=== PATIENT | female | born 1930 | race Caucasian/White ===

== ENCOUNTER 2018-02-18 23:42 | Inpatient (IN) | payer OTHER ==
[2018-02-19] MEDS ORDERED: NA CHLORIDE 0.9% 1,000 ML ONE (00:17)
[2018-02-19] MEDS ORDERED: ONDANSETRON 4 MG/2 ML VIAL ONE (00:17)
[2018-02-19 00:23] LABS: Absolute Lymphocytes (CBC) 1.5 K/uL (0.7-4.9); Absolute Monocytes 0.8 K/uL (0.1-1.3); Absolute Neutrophil 9.3 K/uL (1.8-8.0); Hematocrit 43.4 % (36.0-45.0); MPV 9.5 fL (7.6-11.3); Monocytes % 6.4 % (3.3-12.3)
[2018-02-19] MEDS ORDERED: PROMETHAZINE 25 MG/ML VIAL ONE ×2 (00:44→01:34)
[2018-02-19 01:05] LABS: ALT/SGPT 24 U/L (12-78); AST/SGOT 28 U/L (15-37); Albumin 3.4 g/dL (3.4-5.0); Alkaline Phosphatase 85 U/L (45-117); BUN Blood Urea Nitrogen 39 mg/dL (7-18); Bicarbonate 24 mmol/L (21-32); Bilirubin Direct < 0.1 mg/dL (0-0.2); Bilirubin Total 0.2 mg/dL (0.2-1.0); Glucose Level 146 mg/dL (74-106); Lipase 208 U/L (73-393); Potassium 4.5 mmol/L (3.5-5.1); Protein, Total 7.4 g/dL (6.4-8.2); Sodium Level 138 mmol/L (136-145)
[2018-02-19] MEDS ORDERED: MEPERIDINE HCL 25 MG/0.5 ML ONE (01:53)
[2018-02-19] MEDS ORDERED: LIDOCAINE VISCOUS 2% SOLN 15 ML UDC ONE (03:35)
--- NOTE | 2018-02-19 04:47 | ER ---
Nurse's Notes [facility] Name: Carlee Zhou Age: 87 yrs Sex: Female : 1930 Arrival Date: 02/18/2018 Time: 23:48 Bed 6 Private MD: Bassam Duarte C Diagnosis: Unspecified abdominal hernia;Small bowel obstruction;Dehydration Presentation: 02/19 00:03 Presenting complaint: Patient states: "I think it's plugged up"; Patient states lp1 attempting measures to fix blocked ostomy bag with no relief; pain and tenderness around site. Transition of care: patient was not received from another setting of care. Onset of symptoms was February 19, 2018. Risk Assessment: Do you want to hurt yourself or someone else? Patient reports no desire to harm self or others. Initial Sepsis Screen: Does the patient meet any 2 criteria? No. Patient's initial sepsis screen is negative. Does the patient have a suspected source of infection? No. Patient's initial sepsis screen is negative. Care prior to arrival: None. 00:03 Method Of Arrival: Wheelchair lp1 00:03 Acuity: CIRA 3 lp1 Historical: - Allergies: 00:07 Sulfa (Sulfonamide Antibiotics); lp1 - Home Meds: 00:07 Prednisone Oral [Active]; lp1 - PMHx: 00:07 "Leaky heart valve"; Asthma; Hypertension; ulcerative colitis; lp1 - PSHx: 00:07 Ileostomy; lp1 - Immunization history:: Adult Immunizations up to date. - Social history:: Smoking status: Patient/guardian denies using tobacco. - Ebola Screening: : No symptoms or risks identified at this time. - Family history:: not pertinent. - Hospitalizations: : No recent hospitalization is reported. Screenin:10 Abuse screen: Denies threats or abuse. Nutritional screening: No deficits noted. bb Tuberculosis screening: No symptoms or risk factors identified. Fall Risk None identified. Assessment: 00:10 General: Appears in no apparent distress. uncomfortable, Behavior is calm, cooperative. bb Pain: Complains of pain in abdomen. Neuro: Level of Consciousness is awake, alert, obeys commands, Oriented to person, place, time, situation. Cardiovascular: Heart tones S1 S2 present Capillary refill < 3 seconds Patient's skin is warm and dry. Pulses are all present. Edema is absent. Respiratory: Airway is patent Respiratory effort is even, unlabored, Respiratory pattern is regular, Breath sounds are clear bilaterally. GI: Abdomen is non-distended, Bowel sounds present X 4 quads. Abd is soft X 4 quads Abdomen is tender to palpation in right upper quadrant and right lower quadrant Reports pt 's c/o ileostomy does not seem to be working. Derm: Skin is pink, warm \\T\\ dry. Musculoskeletal: Circulation, motion, and sensation intact. 00:25 Reassessment: pt c/o increased nausea, Dr. Meyers notified with new orders given. pt ak1 will attempt to start oral contrast at 0100. will continue to monitor. . 01:21 Reassessment: pt finished 200mL oral contrast and unable to finish, Dr. Meyers notified. ak1 CT contacted that per Dr. Meyers that was enough oral contrast. 01:34 Reassessment: Patient is alert, oriented x 3, equal unlabored respirations, skin bb warm/dry/pink. pt actively vomiting Dr Meyers notified new orders received pt medicated see MAY. 01:45 Reassessment: pt c/o abdominal pain Dr Meyers notified new orders received pt medicated bb see MAY. 01:50 Reassessment: pt to CT scan via stretcher with ordnance engineering technician. bb 02:14 Reassessment: Patient is alert, oriented x 3, equal unlabored respirations, skin bb warm/dry/pink. IV site intact, patent with fluids infusing, family at bedside awaiting CT results. 03:48 Reassessment: Patient is alert, oriented x 3, equal unlabored respirations, skin bb warm/dry/pink. NG tube placed to left nare pt tolerated well see note. 03:50 Reassessment: pt and family notified of findings and recommendations pt to be bb transferred for higher level of care pt and family verbalized understanding of and agrees to plan of care. 04:31 Reassessment: pt appears to be sleeping eyes closed, resp unlabored, NG tube in place bb to low-intermittent suction, family at bedside, unable to transfer pt will be admitted here. 04:50 Reassessment: Dr Meyers at bedside discussed the need for admission due to her physician bb no longer is available at [facility], and [facility] is at capacity. Pt and family verbalized understanding of and agrees to plan of care. Awaiting room assignment. 06:16 Reassessment: Patient and/or family updated on plan of care and expected duration. Pain bb level reassessed. Patient is alert, oriented x 3, equal unlabored respirations, skin warm/dry/pink. pt awaiting room assignment after shift change, IV site intact, NG tube to left nare in place to low intermittent suction. 06:45 Reassessment: pt assisted to restroom to empty colostomy bag, pt had "full bag". ak1 provider notified. family and pt notified of transfer to assigned room after 30 due to shift change. . 07:13 Reassessment: report given to Trisha and MAUREEN. ak1 08:14 Reassessment: No changes from previously documented assessment. Patient and/or family ph updated on plan of care and expected duration. Pain level reassessed. Patient is alert, oriented x 3, equal unlabored respirations, skin warm/dry/pink. Report called to Amy MARIE, pt taken to 4th floor by senior radiation protection technician. Vital Signs: 00:07 BP 148 / 62; Pulse 82; Resp 18; Temp 98.1(O); Pulse Ox 97% on R/A; Weight 85.28 kg; lp1 Height 5 ft. 1 in. (154.94 cm); Pain 8/10; 01:24 BP 153 / 63; Pulse 83; Resp 18; Pulse Ox 97% on R/A; ak1 02:16 BP 121 / 54; Pulse 78; Resp 16; Pulse Ox 95% on R/A; bb 03:49 BP 130 / 51; Pulse 81; Resp 16 S; Pulse Ox 94% on R/A; bb 04:32 BP 124 / 47; Pulse 78; Resp 14 S; Pulse Ox 93% on R/A; bb 05:15 BP 127 / 50; Pulse 66; Resp 16; Pulse Ox 93% on R/A; bb 06:17 BP 134 / 48; Pulse 73; Resp 16 S; Temp 98.3(O); Pulse Ox 94% on R/A; bb 07:15 BP 124 / 52; Pulse 71; Resp 18; Pulse Ox 97% on R/A; ph 08:15 BP 127 / 51; Pulse 67; Resp 18; Temp 98.1; Pulse Ox 94% on R/A; ph 00:07 Body Mass Index 35.52 (85.28 kg, 154.94 cm) lp1 ED Course: 02/18 23:48 Patient arrived in ED. am2 23:49 Bassam Duarte MD is Private Physician. am2 23:52 Frankie Meyers MD is Attending Physician. rn 02/19 00:02 Smita Evans, RN is Primary Nurse. ak1 00:05 Triage completed. lp1 00:07 Arm band placed on. lp1 00:10 Patient has correct armband on for positive identification. Placed in gown. Bed in low bb position. Call light in reach. Side rails up X2. Adult w/ patient. surveillance system monitor on. Pulse ox on. NIBP on. Warm blanket given. 00:10 Inserted saline lock: 20 gauge in right antecubital area, using aseptic technique. jb5 Blood collected. 00:11 Basic Metabolic Panel Sent. jb5 00:11 CBC with Diff Sent. jb5 00:12 Hepatic Function Sent. jb5 00:12 Lipase Sent. jb5 00:22 Inserted saline lock: 22 gauge in left antecubital area, using aseptic technique. jb5 01:54 CT completed. Patient tolerated procedure well. Patient moved to CT via stretcher. Patient moved back from CT. 02:01 Abdomen In Process Unspecified. EDMS 03:48 NGT: inserted 14 Fr. via left nare. verified placement of air over stomach, verified bb return of gastric contents, to intermittent suction. Returned gastric contents. Patient tolerated well. 03:51 No provider procedures requiring assistance completed. Patient transferred, IV remains bb in place. 04:46 Bassam Duarte MD is Hospitalizing Provider. rn Administered Medications: 00:15 Drug: Zofran 4 mg Route: IVP; Site: right antecubital; ak1 00:23 Follow up: Response: Nausea unchanged ak1 00:23 Drug: NS 0.9% 500 ml Route: IV; Rate: bolus; Site: left antecubital; ak1 01:00 Follow up: IV Status: Completed infusion ak1 01:00 Follow up: IV Intake: 500ml ak1 00:45 Drug: Phenergan 12.5 mg Route: IVP; Site: left antecubital; ak1 01:00 Follow up: Response: No adverse reaction; Nausea is decreased ak1 :18 Drug: NS 0.9% 500 ml Route: IV; Rate: bolus; Site: left antecubital; bb 02:15 Follow up: IV Status: Completed infusion; IV Intake: 500ml bb 01:32 CANCELLED (Duplicate Order): Phenergan 12.5 mg IVP once bb 01:33 Drug: Phenergan 12.5 mg Route: IVP; Site: left antecubital; bb 02:30 Follow up: Response: Marked relief of symptoms bb 01:50 Drug: Demerol 25 mg Route: IVP; Site: left antecubital; bb 06:20 Follow up: Response: Pain is decreased bb 03:40 Drug: Viscous Lidocaine Liquid (4 %) 1 pkgs Route: Mucous Membrane; bb 04:00 Follow up: Response: No adverse reaction bb Intake: 01:00 IV: 500ml; Total: 500ml. ak1 02:15 IV: 500ml; Total: 1000ml. bb Outcome: 03:50 Instructed on the need for transfer. bb 03:51 Condition: stable bb 04:47 Decision to Hospitalize by Provider. rn 08:16 Admitted to Med/surg accompanied by tech, via stretcher, room 410, with chart, Report ph called to RN 08:22 Patient left the ED. ph Signatures: Dispatcher [employer] EDMS Audrey Dee Brenda RN RN bb Frankie Meyers MD MD rn Pena, Laura, RN RN lp1 Smita Evans RN RN ak1 Blanche Crawford RN RN ph Eleonora House Amanda am2
--- NOTE | 2018-02-19 04:47 | EDPHYS ---
Physician Documentation [facility] Name: Carlee Zhou Age: 87 yrs Sex: Female : 1930 Arrival Date: 02/18/2018 Time: 23:48 Bed 6 Private MD: Bassam Duarte C ED Physician Frankie Meyers HPI: 02/19 00:06 This 87 yrs old Female presents to ER via Wheelchair with complaints of auditor internal bag problem. 00:06 The patient presents with abdominal pain. Onset: The symptoms/episode began/occurred rn today. The symptoms do not radiate. Associated signs and symptoms: Pertinent positives: constipation. The symptoms are described as achy, crampy. Modifying factors: The symptoms are alleviated by nothing, the symptoms are aggravated by nothing. Severity of pain: At its worst the pain was moderate in the emergency department the pain has improved. The patient has experienced similar episodes in the past. REports decreased ostomy output, surgery was in 2011 for ulcerative colitis, has ileostomy, has had this multiple times in past but fixed itself with fluids. Reports took trip to [place] and came back like this. + nausea and vomiting. . Historical: - Allergies: 00:07 Sulfa (Sulfonamide Antibiotics); lp1 - Home Meds: 00:07 Prednisone Oral [Active]; lp1 - PMHx: 00:07 "Leaky heart valve"; Asthma; Hypertension; ulcerative colitis; lp1 - PSHx: 00:07 Ileostomy; lp1 - Immunization history:: Adult Immunizations up to date. - Social history:: Smoking status: Patient/guardian denies using tobacco. - Ebola Screening: : No symptoms or risks identified at this time. - Family history:: not pertinent. - Hospitalizations: : No recent hospitalization is reported. ROS: 00:06 Constitutional: Negative for fever, chills, and weight loss, Eyes: Negative for injury, rn pain, redness, and discharge, Neck: Negative for injury, pain, and swelling, Cardiovascular: Negative for chest pain, palpitations, and edema, Respiratory: Negative for shortness of breath, cough, wheezing, and pleuritic chest pain, Abdomen/GI: + abd pain and nausea/vomiting, + constipation MS/Extremity: Negative for injury and deformity, Skin: Negative for injury, rash, and discoloration, Neuro: Negative for headache, weakness, numbness, tingling, and seizure. Exam: 00:06 Constitutional: This is a well developed, well nourished patient who is awake, alert, rn appears uncomfortable Head/Face: Normocephalic, atraumatic. Eyes: Pupils equal round and reactive to light, extra-ocular motions intact. Lids and lashes normal. Conjunctiva and sclera are non-icteric and not injected. Cornea within normal limits. Periorbital areas with no swelling, redness, or edema. ENT: dry MM Cardiovascular: Regular rate and rhythm, No pulse deficits. Respiratory: Lungs have equal breath sounds bilaterally, clear to auscultation Abdomen/GI: soft, mild periumbilical tenderness MS/ Extremity: Pulses equal, no cyanosis. Neurovascular intact. Full, normal range of motion. Equal circumference. Neuro: Awake and alert, GCS 15, oriented to person, place, time, and situation. Cranial nerves II-XII grossly intact. Motor strength 5/5 in all extremities. Sensory grossly intact. Vital Signs: 00:07 BP 148 / 62; Pulse 82; Resp 18; Temp 98.1(O); Pulse Ox 97% on R/A; Weight 85.28 kg; lp1 Height 5 ft. 1 in. (154.94 cm); Pain 8/10; 01:24 BP 153 / 63; Pulse 83; Resp 18; Pulse Ox 97% on R/A; ak1 02:16 BP 121 / 54; Pulse 78; Resp 16; Pulse Ox 95% on R/A; bb 03:49 BP 130 / 51; Pulse 81; Resp 16 S; Pulse Ox 94% on R/A; bb 04:32 BP 124 / 47; Pulse 78; Resp 14 S; Pulse Ox 93% on R/A; bb 05:15 BP 127 / 50; Pulse 66; Resp 16; Pulse Ox 93% on R/A; bb 06:17 BP 134 / 48; Pulse 73; Resp 16 S; Temp 98.3(O); Pulse Ox 94% on R/A; bb 07:15 BP 124 / 52; Pulse 71; Resp 18; Pulse Ox 97% on R/A; ph 08:15 BP 127 / 51; Pulse 67; Resp 18; Temp 98.1; Pulse Ox 94% on R/A; ph 00:07 Body Mass Index 35.52 (85.28 kg, 154.94 cm) lp1 Procedures: 03:29 Performed Hernia reduction. Pt placed supine, hernia palpated, with gentle pressure, rn hernia reduced, pt improved, pending NG tube placement, awaiting call back from [facility] colorectal given patient prefers to go back there given colectomy and ileostomy done there. . MDM: 02/18 23:52 Patient medically screened. rn 02/19 04:31 ED course: Have called Dr. Beverly 3 times, no answer, goes straight to voicemail, rn confirmed he is data center consultant after 7PM tonight and not Dr. Interiano. . 04:43 ED course: Attempted transfer to [facility] given surgery there 6 years ago, her surgeon, rn Dr. Espinoza Fonseca no longer practices there. We were told by [facility] that practices [facility], unable to discuss patient with [facility] since at capacity and told by transfer center not accepting transfers. Admitted patient to Dr. Watters given unable to discuss care with Dr. Beverly, and hernia that is causing SBO is now reduced. . 06:36 ED course: Pt Just emptied colostomy bag, was full, reports abd pain resolved. . rn 02/18 23:58 Order name: Basic Metabolic Panel; Complete Time: 01:09 rn 02/18 23:58 Order name: CBC with Diff; Complete Time: 01:09 rn 02/18 23:58 Order name: Hepatic Function; Complete Time: 01:09 rn 02/18 23:58 Order name: Lipase; Complete Time: 01:09 rn 02/19 01:54 Order name: Abdomen EDFL 02/18 23:58 Order name: IV Saline Lock; Complete Time: 00:12 rn 02/18 23:58 Order name: Labs collected and sent; Complete Time: 00:12 rn 02/19 03:34 Order name: NG Tube; Complete Time: 03:47 ak1 Administered Medications: 00:15 Drug: Zofran 4 mg Route: IVP; Site: right antecubital; ak1 00:23 Follow up: Response: Nausea unchanged ak1 00:23 Drug: NS 0.9% 500 ml Route: IV; Rate: bolus; Site: left antecubital; ak1 01:00 Follow up: IV Status: Completed infusion ak1 01:00 Follow up: IV Intake: 500ml ak1 00:45 Drug: Phenergan 12.5 mg Route: IVP; Site: left antecubital; ak1 01:00 Follow up: Response: No adverse reaction; Nausea is decreased ak1 01:18 Drug: NS 0.9% 500 ml Route: IV; Rate: bolus; Site: left antecubital; bb 02:15 Follow up: IV Status: Completed infusion; IV Intake: 500ml bb 01:32 CANCELLED (Duplicate Order): Phenergan 12.5 mg IVP once bb 01:33 Drug: Phenergan 12.5 mg Route: IVP; Site: left antecubital; bb 02:30 Follow up: Response: Marked relief of symptoms bb 01:50 Drug: Demerol 25 mg Route: IVP; Site: left antecubital; bb 06:20 Follow up: Response: Pain is decreased bb 03:40 Drug: Viscous Lidocaine Liquid (4 %) 1 pkgs Route: Mucous Membrane; bb 04:00 Follow up: Response: No adverse reaction bb Disposition: 02/19/18 04:47 Hospitalization ordered by Bassam Duarte for Inpatient Admission. Preliminary diagnosis are Unspecified abdominal hernia, Small bowel obstruction, Dehydration. - Bed requested for Telemetry/MedSurg (Inpatient). - Status is Inpatient Admission. ph - Condition is Stable. - Problem is new. - Symptoms have improved. UTI on Admission? No Signatures: Dispatcher [employer] EDFL Ann Robles Kimberly, RN RN kl Ballard, Brenda RN Frankie Dillon MD MD rn Pena, Laura RN RN lp1 Smita Evans RN RN akBlanche Astudillo RN RN ph Corrections: (The following items were deleted from the chart) 01:32 01:32 Phenergan 12.5 mg IVP once ordered. bb bb 01:54 02/18 23:59 Abdomen Pelvis W Con+CT.RAD.BRZ ordered. EDFL EDFL 02/19 06:54 04:47 Hospitalization Ordered by Bassam Duarte MD for Inpatient Admission. Preliminary kl diagnosis is Unspecified abdominal hernia; Small bowel obstruction; Dehydration. Bed requested for Telemetry/MedSurg (Inpatient). Status is Inpatient Admission. Condition is Stable. Problem is new. Symptoms have improved. UTI on Admission? No. rn 07:48 06:54 02/19/2018 04:47 Hospitalization Ordered by A Gerald RAMIREZ for Inpatient Admission. bd Preliminary diagnosis is Unspecified abdominal hernia; Small bowel obstruction; Dehydration. Bed requested for Telemetry/MedSurg (Inpatient). Status is Inpatient Admission. Condition is Stable. Problem is new. Symptoms have improved. UTI on Admission? No. kl 07:48 07:48 02/19/2018 04:47 Hospitalization Ordered by A Gerald RAMIREZ for Inpatient Admission. bd Preliminary diagnosis is Unspecified abdominal hernia; Small bowel obstruction; Dehydration. Bed requested for Telemetry/MedSurg (Inpatient). Status is Inpatient Admission. Condition is Stable. Problem is new. Symptoms have improved. UTI on Admission? No. bd 07:51 07:48 02/19/2018 04:47 Hospitalization Ordered by A Gerald RAMIREZ for Inpatient Admission. bd Preliminary diagnosis is Unspecified abdominal hernia; Small bowel obstruction; Dehydration. Bed requested for Telemetry/MedSurg (Inpatient). Status is Inpatient Admission. Condition is Stable. Problem is new. Symptoms have improved. UTI on Admission? No. bd 08:22 07:51 02/19/2018 04:47 Hospitalization Ordered by A Gerald RAMIREZ for Inpatient Admission. ph Preliminary diagnosis is Unspecified abdominal hernia; Small bowel obstruction; Dehydration. Bed requested for Telemetry/MedSurg (Inpatient). Status is Inpatient Admission. Condition is Stable. Problem is new. Symptoms have improved. UTI on Admission? No. bd
[2018-02-19] MEDS ORDERED: ZOLPIDEM TARTRATE 5 MG TABLET PO PRN (07:57)
[2018-02-19] MEDS ORDERED: ALBUTEROL 2.5 MG/3 ML NEB SOL NEB PRN (07:57)
[2018-02-19] MEDS ORDERED: ONDANSETRON 4 MG/2 ML VIAL IV PRN (08:35)
[2018-02-19] MEDS ORDERED: MORPHINE 4 MG/ML SYR IV PRN (08:35)
--- NOTE | 2018-02-19 08:51 | RAD REPORT ---
EXAM DESCRIPTION: CT - Abdomen Pelvis Wo Contrast - 02/19/2018 4:25 am CLINICAL HISTORY: Abdominal pain. eval for SBO;Abd pain COMPARISON: [facility]STONE PROTOCOL dated 04/28/2015 TECHNIQUE: CT imaging of the abdomen and pelvis was performed without contrast. Solid organ and vasc ular assessment is limited due to lack of IV contrast. All CT scans are performed using dose optimization technique as appropriate and may include automated exposure control or mA/KV adjustment according to patient size. FINDINGS: Emphysematous changes are present in the lung bases. The liver, spleen, pancreas, adrenal glands and kidneys are within normal limits for a limited non-co ntrast examination. Several prominent ventral hernias are present including fat containing superior ventral hernia, infer ior to this a ventral hernia containing unobstructed loop of small bowel is also present. A moderate parastomal hernia containing small bowel loop mildly congested fat to the right of midline. This olga ia appears to result in moderate grade mechanical small-bowel obstruction. No abscess. Colectomy tafoya ges noted. No free intraperitoneal air seen. L3 vertebral body cement noted. IMPRESSION: Moderate parastomal hernia of small bowel results in moderate grade mechanical small-bow el obstruction as detailed. A limited non-contrast examination was performed as detailed.
[2018-02-19] MEDS ORDERED: CEFTRIAXONE 1 GM/NS 50 ML 1 GM/50 ML BAG IV SCH (09:00)
[2018-02-19] MEDS: DILTIAZEM HCL 180 MG SR CAP PO SCH (09:00)
[2018-02-19] MEDS: D5 0.45 NS 1,000 ML IV SCH ×2 (09:25→16:28)
[2018-02-19] MEDS: CEFTRIAXONE/SWI 1gm 1 GM/10 ML SYR IV SCH ×2 (09:26→21:39)
[2018-02-19] MEDS: HYDROCORTISONE SUC 100 MG INJ IV SCH ×3 (10:28→18:00)
[2018-02-19] MEDS: DULERA 200/5 (MOMETASONE/FORMOTEROL) INHALER IH SCH ×2 (10:28→21:38)
[2018-02-19] MEDS: METRONIDAZOLE 500mg IVPB 500 MG/100 ML BAG IV SCH ×2 (10:29→16:27)
[2018-02-19] MEDS ORDERED: PNEUMOCOCCAL VACCINE 0.5 ML IMVAC ONE (11:00)
[2018-02-19] MEDS ORDERED: INFLUENZA VACCINE (for 3y+) 0.5 ML DOSE IMVAC ONE (11:00)
[2018-02-19 11:40] LABS: Urine Appearance CLEAR; Urine Bilirubin NEGATIVE (NEG); Urine Blood NEGATIVE (NEG); Urine Color YELLOW; Urine Glucose NEGATIVE (NEG); Urine Microscopic Reflex NO UMIC; Urine Protein NEGATIVE (NEG); Urine Specific Gravity 1.015 (1.005-1.030); Urine Urobilinogen 0.2 mg/dL (0.2-1.0)
[2018-02-19] MEDS ORDERED: ENOXAPARIN 30 MG/0.3 ML SQ SCH (17:00)
[2018-02-19] MEDS ORDERED: ENOXAPARIN 40 MG/0.4 ML SQ SCH (17:00)
[2018-02-20] MEDS: HYDROCORTISONE SUC 100 MG INJ IV SCH ×5 (01:00→23:55)
[2018-02-20] MEDS: METRONIDAZOLE 500mg IVPB 500 MG/100 ML BAG IV SCH ×4 (01:04→23:55)
--- NOTE | 2018-02-20 01:26 | HP ---
Date of Admission: 02/19/2018 Chief Complaint: Abdominal pain, nausea, vomiting. History Of Present Illness: This 87-year-old female patient who was doing fine until yesterday stevie kate started to have significant abdominal pain associated with nausea, vomiting, [facility] Denies any fever, chills. No hematemesis, no bleeding, no blood in stool. After the p collin came into emergency room, she was diagnosed as having parastomal hernia and small bowel obstru ction. ER physician was able to reduce her hernia. An NG tube was placed. IV fluid, IV antibiotics were started and the patient was admitted to the hospital under my service. I saw her this morning she was in the emergency room, her and [id number] were present with her. She was feelin g much better compared to last night. Allergies: TO SULFA. Medications: List reviewed, and she takes prednisone 5 mg daily, Benicar 20 mg daily, diltiazem 180 mg p.o. daily, Symbicort inhaler 2 puffs twice a day, ProAir inhaler p.r.n. Review of Systems: GI: As mentioned above. All other systems reviewed and negative. Social History: Negative for smoking and alcohol use. Family History: Not pertinent. Past Surgical History: Significant for total colectomy in 2004 because of ulcerative colitis and had vertebroplasty for compression fracture of L3-L4 and this was done February 2015. Past Medical History: Significant for hypertension, compression fracture of lumbar spine, ulcerative colitis, asthma, diverticulosis, hyperlipidemia, allergic rhinitis, insomnia, vitamin D deficiency. Physical Examination: Vital Signs: Reviewed. General: Awake, alert, oriented, not in distress. HEENT: Head atraumatic, normocephalic. Conjunctivae nonerythematous. Sclerae white. Mouth, no thr ush or edema noted. Ears/Nose, no mass, lesion, discharge noted. Neck: Supple. No JVD, lymph nodes, bruit, thyromegaly noted. Lungs: Bilateral good equal air entry. Clear to auscultation. No rhonchi. No rales. Heart: Normal heart sounds, no murmur or gallop. Abdomen: The patient has some tenderness around her stoma, which is in right lower quadrant and stom a site appears normal. Abdomen is soft, bowel sounds normoactive. Extremities: No leg edema. No calf tenderness. Skin: No rash, ulcer, cellulitis. Lymphatics: No lymph node enlargement in neck, supraclavicular, infraclavicular region. Neuro: No focal neurological deficit. Chest: Unremarkable. External Genitalia: Deferred. Rectal: Deferred. Laboratory Data: White count 11.8, hemoglobin 14.3, platelets 280. Sodium 138, potassium 4.5, chlor phil 107, bicarb 24, BUN 39, creatinine 1.60, glucose 146. Liver function tests unremarkable. Lipase 208. CAT scan of abdomen and pelvis done in emergency room, results reviewed showing parastomal her lisa with evidence of small bowel obstruction. Impression: 1.Small bowel obstruction. 2.Parastomal abdominal wall hernia. 3.Hypertension. 4.Hyperlipidemia. 5.Mild intermittent asthma. 6.Allergic rhinitis. 7.Ulcerative colitis. 8.Vitamin D deficiency. 9.Diverticulosis. 10.Insomnia. Plan: We will admit the patient to hospital for further evaluation and management of this problem. The patient is appropriate for inpatient and is expected to spend 2 midnights in hospital. Consult g eneral surgeon. NG tube was placed in emergency room. We will continue NG tube to low intermittent suction. IV fluid, IV antibiotics will be given per order. DVT prophylaxis will be given per order using Lovenox. Home medications will be continued, which is diltiazem at this point and we will cons ider to restart Benicar when necessary. The patient is on chronic steroid therapy using prednisone 5 mg daily and considering her acute illness. Right now, we will go ahead and give her IV Solu-Cortef 50 mg every 6 hours. SCD was ordered. I will see her tomorrow for followup. NIDHI/MODL Voice ID: [id number]
[2018-02-20] MEDS: D5 0.45 NS 1,000 ML IV SCH ×4 (04:26→23:56)
[2018-02-20 04:38] LABS: ALT/SGPT 17 U/L (12-78); AST/SGOT 14 U/L (15-37); Albumin 2.6 g/dL (3.4-5.0); Alkaline Phosphatase 51 U/L (45-117); BUN Blood Urea Nitrogen 16 mg/dL (7-18); Bicarbonate 27 mmol/L (21-32); Bilirubin Direct < 0.1 mg/dL (0-0.2); Bilirubin Total 0.2 mg/dL (0.2-1.0); Glucose Level 160 mg/dL (74-106); Lipase 92 U/L (73-393); Potassium 4.8 mmol/L (3.5-5.1); Protein, Total 5.8 g/dL (6.4-8.2); Sodium Level 144 mmol/L (136-145)
[2018-02-20 04:39] LABS: Absolute Lymphocytes (CBC) 0.9 K/uL (0.7-4.9); Absolute Monocytes 0.2 K/uL (0.1-1.3); Absolute Neutrophil 6.6 K/uL (1.8-8.0); Basophils % 0.2 % (0-1.3); Hematocrit 37.1 % (36.0-45.0); Lymphocytes % 12.2 % (15.3-44.8); MPV 10.2 fL (7.6-11.3); Monocytes % 2.5 % (3.3-12.3); RBC Red Blood Cell Count 4.19 M/uL (3.86-4.86)
[2018-02-20 05:17] LABS: Blood Morphology Comment NOT SEEN (NOT SEEN); Platelet Estimate ADEQ
[2018-02-20] MEDS: DULERA 200/5 (MOMETASONE/FORMOTEROL) INHALER IH SCH ×2 (09:00→21:28)
[2018-02-20] MEDS: CEFTRIAXONE/SWI 1gm 1 GM/10 ML SYR IV SCH ×2 (09:00→21:28)
--- NOTE | 2018-02-20 09:28 | RAD REPORT ---
EXAM DESCRIPTION: RAD - Abdomen Acute Series - 02/20/2018 8:15 am CLINICAL HISTORY: Small bowel obstruction COMPARISON: CT imaging February 19, acute abdomen series April 2015 FINDINGS: No mass or consolidation of the lung parenchyma. Interstitial markings are prominent poten tially masking minimal interstitial edema or infiltrate. Heart size and pulmonary vasculature are nor mal. No pneumothorax is present. Right costophrenic angle blunting is present. Patient can be monitor ed for minimal pleural effusion. No pleural fluid was seen on the prior day CT study. NG tube is in good position. Stomach is decompressed. Multiple distended small bowel loops are present. This indicates improvement but not complete resolut ion of the small bowel obstruction pattern. On AP projections it cannot be determined if the small chyna wel loops and colon continue to extend through the hernia defects. No free air or pneumatosis. No cha picious calcifications. No other suspicious for significant findings. IMPRESSION: Small bowel obstruction pattern has improved but not fully resolved. No free air or pneumatosis. Stomach is decompressed with well positioned NG tube.
[2018-02-20] MEDS: DILTIAZEM HCL 180 MG SR CAP PO SCH (09:44)
[2018-02-20 10:54] VITALS: O2SAT 95
[2018-02-20] MEDS ORDERED: PNEUMOCOCCAL VACCINE 0.5 ML IMVAC ONE (11:00)
[2018-02-20] MEDS ORDERED: INFLUENZA VACCINE (for 3y+) 0.5 ML DOSE IMVAC ONE (11:00)
[2018-02-20] MEDS: ENOXAPARIN 40 MG/0.4 ML SQ SCH (16:29)
--- NOTE | 2018-02-21 01:26 | PN ---
Date of Progress Note: 02/20/2018 Subjective: The patient was seen this morning for followup. No new complaints or problems reported by the patient. NG tube was in place, draining dark liquid. Denies any abdominal pain, nausea, or v omiting. Objective: Vital Signs: Reviewed. HEENT: Unremarkable. Lungs: Clear to auscultation. Heart: Sounds normal. Abdomen: Soft. Bowel sounds normal. No guarding, rigidity, tenderness, or distention. Her colosto my bag had green-colored stool in it. Extremities: No leg edema. Laboratory Data: Abdominal x-ray done today showed improvement in small bowel obstruction. White co unt 7.7, hemoglobin 12.4, and platelets 229. Sodium 144, potassium 4.8, chloride 113, bicarb 27, BUN 16, creatinine 0.90, and glucose 160. Liver function tests unremarkable. Impression: 1.Small-bowel obstruction. 2.Abdominal wall hernia. 3.Hypertension. 4.Asthma, mild, intermittent. Plan: We will go ahead and continue current medication. The patient has NG tube to low intermittent suction. We will continue to follow with Dr. Beverly for small-bowel obstruction problem. So far, the patient is improving with conservative treatment. Hopefully, Dr. Beverly will allow her to sta rt to have a liquid diet either today or tomorrow and then remove NG tube at appropriate time. Possi ble discharge to go home day after tomorrow, which is on Sunday. Ambulation was encouraged. Continue Lovenox for DVT prophylaxis. Plan of treatment was discussed wi th the patient. NIDHI/MODL Voice ID: [id number] Report ID: [id number]
[2018-02-21] MEDS: HYDROCORTISONE SUC 100 MG INJ IV SCH ×3 (05:44→17:25)
[2018-02-21 06:35] VITALS: BMI 36.6
[2018-02-21] MEDS: DULERA 200/5 (MOMETASONE/FORMOTEROL) INHALER IH SCH ×2 (09:33→21:13)
[2018-02-21] MEDS: METRONIDAZOLE 500mg IVPB 500 MG/100 ML BAG IV SCH ×2 (09:36→17:26)
[2018-02-21] MEDS: D5 0.45 NS 1,000 ML IV SCH ×2 (09:37→17:28)
[2018-02-21] MEDS: DILTIAZEM HCL 180 MG SR CAP PO SCH (09:37)
[2018-02-21] MEDS: CEFTRIAXONE/SWI 1gm 1 GM/10 ML SYR IV SCH ×2 (09:42→21:14)
[2018-02-21] MEDS: WATER FOR INJ,STERILE 10 ML IV SCH ×2 (12:00→17:25)
[2018-02-21] MEDS ORDERED: WATER FOR INJ,STERILE 10 ML ONE (12:18)
[2018-02-21] MEDS: ENOXAPARIN 40 MG/0.4 ML SQ SCH (17:25)
[2018-02-21 19:38] LABS: Urine Appearance CLEAR; Urine Bilirubin NEGATIVE (NEG); Urine Blood NEGATIVE (NEG); Urine Color YELLOW; Urine Glucose NEGATIVE (NEG); Urine Protein NEGATIVE (NEG); Urine Specific Gravity <=1.005 (1.005-1.030); Urine Urobilinogen 0.2 mg/dL (0.2-1.0); Urine pH 6.5 (5.0-7.0)
[2018-02-21 20:11] LABS: Urine Bacteria <20 /HPF (<20); Urine RBC <5 /HPF (NONE SEEN)
[2018-02-21 20:13] LABS: Urine Culture Reflex Order NOT NEEDED
[2018-02-22] MEDS: METRONIDAZOLE 500mg IVPB 500 MG/100 ML BAG IV SCH ×2 (00:17→09:45)
[2018-02-22] MEDS: D5 0.45 NS 1,000 ML IV SCH ×2 (00:17→09:46)
[2018-02-22] MEDS: HYDROCORTISONE SUC 100 MG INJ IV SCH ×3 (00:18→13:04)
--- NOTE | 2018-02-22 02:55 | PN ---
Date of Progress Note: 02/21/2018 Subjective: The patient was seen this morning for followup. No new complaints or problems reported by the patient, lying in bed, not in distress. Her NG tube was clamped by Dr. Beverly during nightt ladarius, and she denies any nausea, vomiting. She has a bowel movement through her stoma. Objective: Vital Signs: Reviewed. HEENT: Unremarkable. Lungs: Clear to auscultation. Heart: Sounds normal. Abdomen: Soft. Bowel sounds normal. No guarding, rigidity, tenderness, distention. Extremities: No leg edema. Impression: 1.Small bowel obstruction. 2.Abdominal wall hernia. 3.Hypertension. Plan: We will continue current medication, continue current antibiotic. The patient was started on clear liquid diet today by Dr. Beverly and we will see how she tolerates her diet and we will advanc e her diet as she tolerates and possible discharge to go home tomorrow. Details and plan of treatmen t discussed with her. NIDHI/MODL Voice ID: [id number] Report ID: [id number]
[2018-02-22] MEDS: WATER FOR INJ,STERILE 10 ML IV SCH ×3 (05:09→12:00)
[2018-02-22] MEDS: DULERA 200/5 (MOMETASONE/FORMOTEROL) INHALER IH SCH (09:00)
[2018-02-22] MEDS: CEFTRIAXONE/SWI 1gm 1 GM/10 ML SYR IV SCH (09:45)
[2018-02-22] MEDS: DILTIAZEM HCL 180 MG SR CAP PO SCH (09:46)
--- NOTE | 2018-02-22 14:09 | P.PN ---
Subjective Date of Service: 02/21/18 Chief Complaint: SBO Subjective: Ambulating, Improving Review of Systems 10-point ROS is otherwise unremarkable Physical Examination - Vital Signs Temperature: 97.8 F Blood Pressure: 176/72 Pulse: 52 Respirations: 20 Pulse Ox (%): 97 - Physical Exam General: Alert, In no apparent distress, Oriented x3 HEENT: PERRLA, EOMI Neck: Supple Gastrointestinal: Soft and benign, No rebound, No guarding, Other (gas and stool in ileostomy bag) Musculoskeletal: No erythema, No tenderness, No warmth Assessment And Plan - Plan clears Remove NGT OOB
--- NOTE | 2018-02-22 14:12 | P.PN ---
Subjective Date of Service: 02/20/18 Chief Complaint: SBO Subjective: No new changes Review of Systems General: Unremarkable ENT: Unremarkable Respiratory: Unremarkable Gastrointestinal: Distention, As per HPI Genitourinary: Unremarkable Physical Examination - Vital Signs Temperature: 97.8 F Blood Pressure: 176/72 Pulse: 52 Respirations: 20 Pulse Ox (%): 97 - Physical Exam General: Alert, In no apparent distress, Oriented x3, Cooperative HEENT: PERRLA, Other, EOMI Neck: Supple Cardiovascular: No edema Gastrointestinal: No rebound, No guarding, Hyperactive, Distended Musculoskeletal: No erythema - Studies reviewed Assessment And Plan - Plan Clamp NGT OOB
[2018-02-22 17:07] VITALS: BP 186/79; TEMP 97.7
--- NOTE | 2018-02-22 19:34 | CON ---
Date of Consultation: 02/19/2018 Reason For Service: Abdominal pain. Bowel obstruction. History Of Present Illness: This is the case of an 87-year-old patient who came to the hospital afte r feeling bloated and abdominal distention. She was in [place], eating with some friends. On th e way back there, started feeling that the ostomy that she has for previous colectomy was not putting any air or bowel movement and then she felt a little bit sicker, came to the ER, diagnosed with a chyna wel obstruction, admitted to the hospital and a surgical consult was obtained. 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 Her physicians who did the colectomy know about it. They have not been able to fix that yet. Review of Systems: Ten points unremarkable. Allergies: SULFA. Medications: Reviewed. Social History: She does not smoke. She does not drink alcohol. Family History: Noncontributory. Past Surgical History: Includes as above, colectomy in 2004 for ulcerative colitis and spine surgery in 2014. Physical Examination: General: The patient is awake and alert. No distress. HEENT: Pupils are equal and reactive, anicteric. Neck: Supple. Chest: Clear. Heart: S1 and S2. Abdomen: Soft and depressible. Ostomy site on the right side, no gas at this moment, no stools pres ent. Abdomen is softly distended with no peritonitis. Rectal: Deferred. Extremity: Good capillary refill. Imaging: CAT scan of the abdomen shows a ventral hernia and also bowel obstruction. Assessment: An 87-year-old patient with bowel obstruction. The patient also has parastomal hernia. She feels better now and started with some hydration. She is trying to treat this conservatively if possible, she understood the options of laparotomy, possible bowel resection, possible neostomy, als o the complexity of abdominal wall hernia repair with benefits, alternatives, and risks fully explain ed. She will be n.p.o., nasogastric decompression and ambulation. HM/MODL Voice ID: [id number] Report ID: [id number]
--- NOTE | 2018-02-23 10:17 | DS ---
Date of Discharge: 02/22/2018 Physical Examination: HEENT: Unremarkable. Lungs: Clear to auscultation. Heart: Sounds normal. Abdomen: Soft. Bowel sounds normal. No guarding, rigidity, tenderness, distention. Extremities: No leg edema. Diet: Will be low residue diet. Discharge Medications And Instructions: 1.Continue all prior home medications. 2.Take metronidazole 500 mg 3 times a day for 1 week and Cipro 500 mg twice a day for 1 week. 3.The patient to take prednisone 5 mg, the patient to take 3 tablets daily for 2 days, then 2 tablet s daily for 2 days, then 1 tablet daily to continue. 4.Follow up with Dr. Beverly next week. Follow up at my office per her scheduled appointment. Laboratory Data: Labs done during this hospitalization. Last chemistry on 02/20/2018, sodium 144, p otassium 4.8, chloride 113, bicarb 27, BUN 16, creatinine 0.90, glucose 160. Liver function tests un remarkable. Lipase 92. White count 7.7, hemoglobin 12.4, platelets 220. Hospital Course: An 87-year-old female patient admitted to the hospital with abdominal pain, nausea, vomiting. Please see dictated H and P for more information. After the patient came into emergency room, she was evaluated and diagnosed as having small bowel obstruction, was admitted to the hospital . The patient had parastomal hernia, which was reduced in the emergency room by ER physician and NG tube was placed, it was attached to low intermittent suction. IV fluid, IV antibiotics were started. She was initially kept n.p.o. and general surgeon, Dr. Beverly, was consulted. The patient's cond ition improved. DVT prophylaxis given with Lovenox. The patient overall improved with conservative treatment. NG tube was clamped and subsequently Dr. Beverly removed it. She was started on clear l iquid diet yesterday, which she has tolerated and today I talked to Dr. Beverly, we will advance t to soft diet and upon discharge, the patient was asked to eat low residue diet and Dr. Rush blackburn ld like to follow up sometime within a week or so. The patient is medically stable for discharge. C AT scan of the abdomen and pelvis done upon admission had shown parastomal hernia with evidence of sm all bowel obstruction. Final Diagnoses: 1.Small bowel obstruction. 2.Parastomal abdominal wall hernia. 3.Hypertension. 4.Hyperlipidemia. 5.Mild intermittent asthma. 6.Allergic rhinitis. 7.Ulcerative colitis. 8.Vitamin D deficiency. 9.Diverticulosis. 10.Insomnia. NIDHI/MODL Voice ID: [id number] Report ID: [id number]
== END 2018-02-22 17:26 | disposition home or self-care (01) | DRG 394 ==
LOC: ER 23:42 → ERHOLD 02-19 05:37 → 4TH 02-19 08:14
PROVIDERS: ADMIT Internal Medicine; ATTEND Internal Medicine
PROC: 0D9670Z Drainage of Stomach with Drainage Device, Via Natural or Artificial Opening (ICD-10-PCS; principal; 2018-02-19)
DX: K43.6 Other and unspecified ventral hernia with obstruction, without gangrene (principal); K51.90 Ulcerative colitis, unspecified, without complications; I10 Essential (primary) hypertension; E78.5 Hyperlipidemia, unspecified; J45.20 Mild intermittent asthma, uncomplicated; E55.9 Vitamin D deficiency, unspecified; K57.90 Diverticulosis of intestine, part unspecified, without perforation or abscess without bleeding; G47.00 Insomnia, unspecified; Z88.2 Allergy status to sulfonamides
CPT/HCPCS: 36415; 74022; 74176; 80048; 80076; 81001; 81003; 82962; 83690; 85025; 87070; 87205; 90670; 97110; 97116; 97163; 97530; 99285; G0008; G0009; J0696; J1650; J1720; J2175; J2405; J2550; J7030; J7606; Q2035

== ENCOUNTER 2018-03-04 14:00 | Emergency (ER) | payer OTHER ==
--- OUTSIDE RECORDS SUMMARY | 2018-03-04 14:03 | XMS REPORT | Clinical Summary ---
:1930 Author Organization [facility] Address [address] [place] [address] Care Team Providers Name Role Phone Unavailable Primary Care Provider Unavailable Allergies Not on File Medications Not on file Active Problems Not on file Encounters Date Type Specialty Care Team Description 02/19/2018 Hospital Encounter after 03/03/2017 Social History Tobacco Use Types Packs/Day Years Used Date Never Assessed Sex Assigned at Date Recorded Not on file Job Start Date Occupation Industry Not on file Not on file Not on file Travel History Travel Start Travel End No recent travel history available. Last Filed Vital Signs Not on file Plan of Treatment Not on file Results Not on fileafter 03/03/2017
[2018-03-04] MEDS ORDERED: LEVALBUTEROL 1.25 MG/3 ML NEB ONE (15:50)
[2018-03-04 15:59] LABS: Absolute Lymphocytes (CBC) 0.7 K/uL (0.7-4.9); Absolute Monocytes 0.6 K/uL (0.1-1.3); Absolute Neutrophil 5.5 K/uL (1.8-8.0); Basophils % 0.7 % (0-1.3); Eosinophils % 0.6 % (0-4.4); Hematocrit 42.1 % (36.0-45.0); Lymphocytes % 10.3 % (15.3-44.8); MPV 8.4 fL (7.6-11.3); Monocytes % 8.3 % (3.3-12.3); RBC Red Blood Cell Count 4.82 M/uL (3.86-4.86)
[2018-03-04 16:11] LABS: Potassium 3.5 mmol/L (3.5-5.1)
--- NOTE | 2018-03-04 16:35 | RAD REPORT ---
EXAM DESCRIPTION: RAD - Chest Single View - 03/04/2018 4:13 pm CLINICAL HISTORY: Cough and congestion, wheezing COMPARISON: February 20 TECHNIQUE: AP portable chest image was obtained 1608 hours . FINDINGS: No focal consolidation, mass or significant failure finding. Patient has chronic interstit ial lung disease accentuated by under penetrated technique and a more shallow inspiratory effort. Min imal edema or infiltrate could be masked. Chest is not substantially different. Heart and vasculature are normal. No measurable pleural effusion and no pneumothorax. No acute bony abnormality seen. No a cute aortic findings suspected. IMPRESSION: Chronic interstitial lung disease possibly masking early interstitial edema or infiltrat e.
--- NOTE | 2018-03-04 18:58 | EDPHYS ---
Physician Documentation [facility] Name: Carlee Zhou Age: 87 yrs Sex: Female : 1930 Arrival Date: 03/04/2018 Time: 14:02 Bed 25 Private MD: Bassam Duarte C ED Physician Jeanmarie Robles HPI: 03/05 09:14 This 87 yrs old Female presents to ER via Ambulatory with complaints of Chest kdr Congestion, Cough. 09:14 The patient or guardian reports airway noise, cough, difficulty breathing, flu kdr symptoms, arthralgias, low-grade fever, myalgias, no appetite. Onset: The symptoms/episode began/occurred gradually, 2 week(s) ago. Severity of symptoms: At their worst the symptoms were mild, moderate, just prior to arrival, in the emergency department the symptoms are unchanged. Modifying factors: The symptoms are alleviated by nothing, the symptoms are aggravated by exertion, talking. Associated signs and symptoms: Pertinent positives: fever, Pertinent negatives: chest pain, diarrhea, nausea, rhinorrhea, sore throat, vomiting. The patient has not experienced similar symptoms in the past. The patient has not recently seen a physician. Historical: - Allergies: 03/04 14:26 Sulfa (Sulfonamide Antibiotics); - Home Meds: 14:26 Prednisone Oral [Active]; Cardene Oral [Active]; Benicar oral oral [Active]; hj - PMHx: 14:26 "leaky heart valve"; Asthma; Hypertension; ulcerative colitis; hj - PSHx: 14:26 Ileostomy; hj - Immunization history:: Adult Immunizations up to date. - Social history:: Smoking status: Patient/guardian denies using tobacco, Patient/guardian denies using alcohol. - Ebola Screening: : Patient negative for fever greater than or equal to 101.5 degrees Fahrenheit, and additional compatible Ebola Virus Disease symptoms Patient denies exposure to infectious person Patient denies travel to an Ebola-affected area in the 21 days before illness onset. ROS: 03/05 09:14 Constitutional: Negative for fever, chills, and weight loss, Eyes: Negative for injury, kdr pain, redness, and discharge, Neck: Negative for injury, pain, and swelling, Cardiovascular: Negative for chest pain, palpitations, and edema, Abdomen/GI: Negative for abdominal pain, nausea, vomiting, diarrhea, and constipation, Back: Negative for injury and pain, : Negative for injury, bleeding, discharge, and swelling, MS/Extremity: Negative for injury and deformity, Skin: Negative for injury, rash, and discoloration, Neuro: Negative for headache, weakness, numbness, tingling, and seizure activity. Psych: Negative for depression, anxiety, suicide ideation, homicidal ideation, and hallucinations, Allergy/Immunology: Negative for hives, rash, and allergies, Endocrine: Negative for neck swelling, polydipsia, polyuria, polyphagia, and marked weight changes, Hematologic/Lymphatic: Negative for swollen nodes, abnormal bleeding, and unusual bruising. ENT: Positive for nasal discharge, rhinorrhea, Negative for ear pain, foreign body sensation, Teeth pain sinus congestion, sore throat, dental pain. Exam: 09:14 Constitutional: This is a well developed, well nourished patient who is awake, alert, kdr and in no acute distress. Head/Face: Normocephalic, atraumatic. Eyes: Pupils equal round and reactive to light, extra-ocular motions intact. Lids and lashes normal. Conjunctiva and sclera are non-icteric and not injected. Cornea within normal limits. Periorbital areas with no swelling, redness, or edema. Neck: Trachea midline, no thyromegaly or masses palpated, and no cervical lymphadenopathy. Supple, full range of motion without nuchal rigidity, or vertebral point tenderness. No Meningismus. Chest/axilla: Normal chest wall appearance and motion. Nontender with no deformity. No lesions are appreciated. Cardiovascular: Regular rate and rhythm with a normal S1 and S2. No gallops, murmurs, or rubs. Normal PMI, no JVD. No pulse deficits. Abdomen/GI: Soft, non-tender, with normal bowel sounds. No distension or tympany. No guarding or rebound. No evidence of tenderness throughout. Back: No spinal tenderness. No costovertebral tenderness. Full range of motion. Skin: Warm, dry with normal turgor. Normal color with no rashes, no lesions, and no evidence of cellulitis. MS/ Extremity: Pulses equal, no cyanosis. Neurovascular intact. Full, normal range of motion. Neuro: Awake and alert, GCS 15, oriented to person, place, time, and situation. Cranial nerves II-XII grossly intact. Motor strength 5/5 in all extremities. Sensory grossly intact. Cerebellar exam normal. Normal gait. Psych: Awake, alert, with orientation to person, place and time. Behavior, mood, and affect are within normal limits. 09:14 Respiratory: the patient does not display signs of respiratory distress, Respirations: normal, Breath sounds: rales, bronchial sounds, rhonchi, that are mild, are located in both bases. Vital Signs: 03/04 14:27 BP 129 / 65; Pulse 90; Resp 18; Temp 98.1(TE); Pulse Ox 95% on R/A; Weight 85.28 kg; hj Height 5 ft. 1 in. (154.94 cm); Pain 0/10; 15:54 BP 132 / 75; Pulse 73; Resp 18; Pulse Ox 100% on R/A; aj1 16:40 BP 140 / 60; Pulse 91; Resp 18; Pulse Ox 95% on R/A; aj1 18:10 BP 148 / 70; Pulse 91; Resp 18; Pulse Ox 96% on R/A; aj1 19:15 BP 136 / 72; Pulse 88; Resp 18; Pulse Ox 97% on R/A; aj1 14:27 Body Mass Index 35.52 (85.28 kg, 154.94 cm) MDM: 18:58 Patient medically screened. kdr 03/05 09:14 Data reviewed: vital signs, nurses notes, lab test result(s), radiologic studies. kdr Counseling: I had a detailed discussion with the patient and/or guardian regarding: the historical points, exam findings, and any diagnostic results supporting the discharge/admit diagnosis, lab results, radiology results, the need for outpatient follow up. 03/04 15:39 Order name: CBC with Diff; Complete Time: 17:08 kdr 03/04 15:39 Order name: Chem 7; Complete Time: 17:08 kdr 03/04 15:39 Order name: CXR XRAY; Complete Time: 17:08 kdr Administered Medications: 03/04 15:53 Drug: Xopenex (3) 1.25 mg Route: Inhalation; aj1 Disposition: 03/04/18 18:58 Discharged to Home. Impression: Bronchitis, not specified as acute or chronic. - Condition is Stable. - Discharge Instructions: Acute Bronchitis, [id number], Upper Respiratory Infection, Adult, [id number]. - Prescriptions for Zithromax Z- Sandor 250 mg Oral Tablet - take 1 tablet by ORAL route as directed for 5 days Day 1 - take two (2) tablets one time. Day 2, 3, 4 , 5 take one (1) tablet once daily.; 6 tablet. Tessalon Perles 100 mg Oral Capsule - take 1 capsule by ORAL route every 8 hours As needed; 15 capsule. - Medication Reconciliation Form, Thank You Letter, Antibiotic Education form. - Follow up: Bassam Duarte MD; When: 2 - 3 days; Reason: If symptoms return, Further diagnostic work-up, Recheck today's complaints, Continuance of care, Re-evaluation by your physician. - Problem is an acute exacerbation. - Symptoms have improved. Signatures: Dispatcher [employer] EDDaniela Russell RN RN aj1 Jeanmarie Robles MD MD [facility] Jim Pérez RN RN hj Corrections: (The following items were deleted from the chart) 19:16 18:58 03/04/2018 18:58 Discharged to Home. Impression: Bronchitis, not specified as aj1 acute or chronic. Condition is Stable. Forms are Medication Reconciliation Form, Thank You Letter, Antibiotic Education, Prescription Opioid Use. Follow up: Bassam Duarte; When: 2 - 3 days; Reason: If symptoms return, Further diagnostic work-up, Recheck today's complaints, Continuance of care, Re-evaluation by your physician. Problem is an acute exacerbation. Symptoms have improved. kdr
--- NOTE | 2018-03-04 18:58 | ER ---
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 Transition of care: patient was not received from another setting of care. Onset of symptoms was March 04, 2018. Risk Assessment: Do you want to hurt yourself or someone else? Patient reports no desire to harm self or others. Initial Sepsis Screen: Does the patient meet any 2 criteria? No. Patient's initial sepsis screen is negative. Does the patient have a suspected source of infection? No. Patient's initial sepsis screen is negative. Care prior to arrival: None. 14:24 Method Of Arrival: Ambulatory 14:24 Acuity: CIRA 3 hj Triage Assessment: 14:26 General: Appears in no apparent distress. uncomfortable, Behavior is calm, cooperative, hj appropriate for age. Pain: Denies pain. Historical: - Allergies: 14:26 Sulfa (Sulfonamide Antibiotics); hj - Home Meds: 14:26 Prednisone Oral [Active]; Cardene Oral [Active]; Benicar oral oral [Active]; hj - PMHx: 14:26 "leaky heart valve"; Asthma; Hypertension; ulcerative colitis; - PSHx: 14:26 Ileostomy; hj - Immunization history:: Adult Immunizations up to date. - Social history:: Smoking status: Patient/guardian denies using tobacco, Patient/guardian denies using alcohol. - Ebola Screening: : Patient negative for fever greater than or equal to 101.5 degrees Fahrenheit, and additional compatible Ebola Virus Disease symptoms Patient denies exposure to infectious person Patient denies travel to an Ebola-affected area in the 21 days before illness onset. Screenin:26 Abuse screen: Denies threats or abuse. Denies injuries from another. Nutritional hj screening: No deficits noted. Tuberculosis screening: No symptoms or risk factors identified. Fall Risk None identified. Assessment: 15:37 General: Appears in no apparent distress. uncomfortable, Behavior is calm, cooperative, aj1 appropriate for age. Pain: Denies pain. Neuro: Level of Consciousness is awake, alert, obeys commands, Oriented to person, place, time, situation. Cardiovascular: Heart tones S1 S2 present Patient's skin is warm and dry. Rhythm is regular. Respiratory: Reports shortness of breath cough that is productive, persistent Airway is patent Respiratory effort is even, unlabored, Respiratory pattern is regular, symmetrical, Breath sounds with wheezes bilaterally. GI: No signs and/or symptoms were reported involving the gastrointestinal system. : No signs and/or symptoms were reported regarding the genitourinary system. EENT: Reports nasal discharge. Derm: No signs and/or symptoms reported regarding the dermatologic system. Skin is pink, warm \\T\\ dry. normal. Musculoskeletal: No signs and/or symptoms reported regarding the musculoskeletal system. Circulation, motion, and sensation intact. 16:40 Reassessment: Patient appears in no apparent distress at this time. No changes from aj1 previously documented assessment. Patient and/or family updated on plan of care and expected duration. Pain level reassessed. Patient is alert, oriented x 3, equal unlabored respirations, skin warm/dry/pink. 18:09 Reassessment: Patient appears in no apparent distress at this time. No changes from aj1 previously documented assessment. Patient and/or family updated on plan of care and expected duration. Pain level reassessed. Patient is alert, oriented x 3, equal unlabored respirations, skin warm/dry/pink. 19:15 Reassessment: Patient appears in no apparent distress at this time. No changes from aj1 previously documented assessment. Patient and/or family updated on plan of care and expected duration. Pain level reassessed. Patient is alert, oriented x 3, equal unlabored respirations, skin warm/dry/pink. Vital Signs: 14:27 BP 129 / 65; Pulse 90; Resp 18; Temp 98.1(TE); Pulse Ox 95% on R/A; Weight 85.28 kg; hj Height 5 ft. 1 in. (154.94 cm); Pain 0/10; 15:54 BP 132 / 75; Pulse 73; Resp 18; Pulse Ox 100% on R/A; aj1 16:40 BP 140 / 60; Pulse 91; Resp 18; Pulse Ox 95% on R/A; aj1 18:10 BP 148 / 70; Pulse 91; Resp 18; Pulse Ox 96% on R/A; aj1 19:15 BP 136 / 72; Pulse 88; Resp 18; Pulse Ox 97% on R/A; aj1 14:27 Body Mass Index 35.52 (85.28 kg, 154.94 cm) hj ED Course: 14:02 Patient arrived in ED. rg4 14:02 Bassam Duarte MD is Private Physician. rg4 14:25 Triage completed. hj 14:26 Arm band placed on right wrist. hj 14:27 Patient has correct armband on for positive identification. Placed in gown. Bed in low hj position. Call light in reach. Side rails up X 1. Adult w/ patient. 15:19 Jeanmarie Robles MD is Attending Physician. kdr 15:30 Daniela Carlson RN is Primary Nurse. aj1 15:37 No provider procedures requiring assistance completed. aj1 15:54 Initial lab(s) drawn, by nc, sent to lab. Inserted saline lock: 20 gauge in left aj1 antecubital area, using aseptic technique. Blood collected. 16:12 X-ray completed. Portable x-ray completed in exam room. Patient tolerated procedure az well. 16:14 CXR XRAY In Process Unspecified. EDMS 18:57 Bassam Duarte MD is Referral Physician. kdr 19:16 IV discontinued, intact, bleeding controlled, No redness/swelling at site. Pressure aj1 dressing applied. Administered Medications: 15:53 Drug: Xopenex (3) 1.25 mg Route: Inhalation; aj1 Outcome: 18:58 Discharge ordered by . kdr 19:16 Discharged to home via wheelchair. aj1 19:16 Condition: good 19:16 Discharge instructions given to patient, family, Instructed on discharge instructions, follow up and referral plans. medication usage, Demonstrated understanding of instructions, follow-up care, medications, Prescriptions given X 2. 19:16 Patient left the ED. aj1 Signatures: Dispatcher [employer] EDME Daniela Carlson RN RN aj1 Jeanmarie Robles MD MD kdr Jim Pérez RN RN hj Garcia, Rubi 4 Naomi Taylor Corrections: (The following items were deleted from the chart) 14:27 14:24 Acuity: CIRA 4 hj hj 14:29 14:27 Pulse 90bpm; Resp 18bpm; Pulse Ox 95% RA; Temp 98.1F Temporal; 85.28 kg; Height 5 hj ft. 1 in.; BMI: 35.5; Pain 0/10; hj
[2018-03-04 19:21] VITALS: TEMP 98.1
[2018-03-04 19:26] VITALS: BP 136/72; O2SAT 97
== END 2018-03-04 19:16 | disposition home or self-care (01) ==
LOC: ER 14:00
DX: J40 Bronchitis, not specified as acute or chronic (principal); I10 Essential (primary) hypertension; Z88.2 Allergy status to sulfonamides
CPT/HCPCS: 36415; 71045; 80048; 85025; 99284

== ENCOUNTER 2019-01-03 15:02 | Emergency (ER) | payer OTHER ==
[2019-01-03] MEDS ORDERED: NA CHLORIDE 0.9% 500 ML ONE (15:49)
[2019-01-03] MEDS ORDERED: MEPERIDINE HCL 25 MG/0.5 ML ONE ×2 (15:49→16:59)
[2019-01-03 15:56] LABS: Basophils % 0.7 % (0-1.3); Hematocrit 38.2 % (36.0-45.0); Lymphocytes % 11.1 % (15.3-44.8); MPV 8.1 fL (7.6-11.3); RBC Red Blood Cell Count 4.19 M/uL (3.86-4.86)
[2019-01-03 16:11] LABS: Albumin 3.1 g/dL (3.4-5.0); Bilirubin Direct 0.1 mg/dL (0-0.2); Bilirubin Total 0.5 mg/dL (0.2-1.0); Potassium 4.7 mmol/L (3.5-5.1); Protein, Total 6.5 g/dL (6.4-8.2)
--- NOTE | 2019-01-03 17:50 | RAD REPORT ---
EXAM DESCRIPTION: CTAbdomen Pelvis W Contrast - 01/03/2019 5:33 pm CLINICAL HISTORY: Abdominal pain. ABD PAIN COMPARISON: No comparisonsAbdomen Pelvis Wo Contrast dated 02/19/2018 TECHNIQUE: Biphasic CT imaging of the abdomen and pelvis was performed with 100 ml non-ionic IV cont rast. All CT scans are performed using dose optimization technique as appropriate and may include automated exposure control or mA/KV adjustment according to patient size. FINDINGS: The lung bases are clear. The liver, spleen, pancreas, adrenal glands and kidneys are within normal limits. No bowel obstruction, free air, free fluid or abscess. Colectomy changes are present with right lower quadrant ileostomy. Small umbilical hernia containing fat and small bowel. No evidence of significa nt lymphadenopathy. Moderate lumbar degenerative changes. IMPRESSION: No acute intra-abdominal or pelvic finding.
--- NOTE | 2019-01-03 19:09 | ER ---
Nurse's Notes [facility] Name: Carlee Zhou Age: 88 yrs Sex: Female : 1930 Arrival Date: 01/03/2019 Time: 15:05 Bed 28 Private MD: Diagnosis: Lower abdominal pain, unspecified;Radiculopathy;Polyneuropathy, unspecified Presentation: 01/03 15:05 Presenting complaint: EMS states: patient is complaining of lower back pain radiating mg2 to the left hip. she had xray done 2 days ago but she dont know the report yet. Transition of care: patient was not received from another setting of care. Onset of symptoms was December 2018. Risk Assessment: Do you want to hurt yourself or someone else? Patient reports no desire to harm self or others. Initial Sepsis Screen: Does the patient meet any 2 criteria? No. Patient's initial sepsis screen is negative. Does the patient have a suspected source of infection? No. Patient's initial sepsis screen is negative. Care prior to arrival: None. 15:05 Method Of Arrival: EMS: [facility] mg2 15:05 Acuity: CIRA 4 mg2 15:36 Acuity: CIRA 3 hb Historical: - Allergies: 15:09 Sulfa (Sulfonamide Antibiotics); mg2 - Home Meds: 15:09 Prednisone Oral [Active]; irbesartan oral oral [Active]; mg2 - PMHx: 15:09 "leaky heart valve"; Asthma; Hypertension; ulcerative colitis; mg2 - PSHx: 15:09 ileostomy with bag; mg2 - Immunization history:: Flu vaccine is up to date. - Social history:: Smoking status: Patient/guardian denies using tobacco, Patient/guardian denies using alcohol, street drugs, IV drugs. - Ebola Screening: : No symptoms or risks identified at this time. - Family history:: not pertinent. - Hospitalizations: : No recent hospitalization is reported. Screenin:09 Abuse screen: Denies threats or abuse. Denies injuries from another. Nutritional mg2 screening: No deficits noted. Tuberculosis screening: No symptoms or risk factors identified. Fall Risk Ambulatory Aid- Crutches/Cane/Walker (15 pts). Assessment: 15:12 General: Appears in no apparent distress. comfortable, Behavior is calm, cooperative. mg2 Pain: Complains of pain in back Pain radiates to left hip Pain currently is 5 out of 10 on a pain scale. Quality of pain is described as aching, Pain began gradually, Is intermittent. Neuro: Level of Consciousness is awake, alert, obeys commands, Oriented to person, place, time, situation. Cardiovascular: Capillary refill < 3 seconds Patient's skin is warm and dry. Respiratory: Airway is patent Respiratory effort is even, unlabored, Respiratory pattern is regular, symmetrical. GI: No signs and/or symptoms were reported involving the gastrointestinal system. EENT: No signs and/or symptoms were reported regarding the EENT system. Derm: Skin is intact, is healthy with good turgor, Skin is pink, warm \\T\\ dry. normal. Musculoskeletal: Circulation, motion, and sensation intact. Capillary refill < 3 seconds. 16:00 Reassessment: Patient appears in no apparent distress at this time. Patient and/or tr5 family updated on plan of care and expected duration. Pain level reassessed. Patient is alert, oriented x 3, equal unlabored respirations, skin warm/dry/pink. 17:10 Reassessment: Patient appears in no apparent distress at this time. No changes from tr5 previously documented assessment. Patient and/or family updated on plan of care and expected duration. Pain level reassessed. Patient is alert, oriented x 3, equal unlabored respirations, skin warm/dry/pink. Family at bedside with patient. 18:00 Reassessment: Patient appears in no apparent distress at this time. Patient and/or tr5 family updated on plan of care and expected duration. Pain level reassessed. Patient is alert, oriented x 3, equal unlabored respirations, skin warm/dry/pink. Vital Signs: 15:08 BP 128 / 90; Pulse 110; Resp 18; Temp 98.6; Pulse Ox 100% on R/A; Weight 49.9 kg; mg2 Height 5 ft. 1 in. (154.94 cm); Pain 5/10; 17:08 BP 128 / 66; Pulse 85; Resp 17; Pulse Ox 99% on R/A; tr5 18:00 BP 142 / 67; Pulse 60; Resp 17; Pulse Ox 100% on R/A; tr5 15:08 Body Mass Index 20.78 (49.90 kg, 154.94 cm) mg2 ED Course: 15:05 Patient arrived in ED. mg2 15:08 Triage completed. mg2 15:09 Arm band placed on. mg2 15:13 Patient has correct armband on for positive identification. Pulse ox on. NIBP on. Door mg2 closed. 15:24 Frankie Meyers MD is Attending Physician. rn 15:30 Werner Hudson, CYNTHIA is Primary Nurse. tr5 15:45 Initial lab(s) drawn, by me, sent to lab. Inserted saline lock: 22 gauge in right tr5 antecubital area, using aseptic technique. 17:34 CT Abd/Pelvis - PO and IV Contrast In Process Unspecified. EDMS 19:57 No provider procedures requiring assistance completed. IV discontinued. tr5 Administered Medications: 15:53 Drug: NS 0.9% 500 ml Route: IV; Rate: bolus; Site: right antecubital; tr5 15:54 Drug: Demerol 25 mg {Note: RASS:0.} Route: IVP; Site: right antecubital; tr5 16:41 Follow up: Response: Pain is decreased; RASS: Alert and Calm (0) tr5 17:07 Drug: Demerol 25 mg {Note: RASS:0.} Route: IVP; Site: right antecubital; tr5 18:28 Follow up: Response: Pain is decreased tr5 Outcome: 19:07 Discharge ordered by . rn 19:57 Discharged to home ambulatory. tr5 19:57 Condition: stable 19:57 Discharge instructions given to patient, family, Instructed on discharge instructions, follow up and referral plans. medication usage, Demonstrated understanding of instructions, follow-up care, medications. 19:57 Patient left the ED. tr5 Signatures: Dispatcher [employer] EDMS Frankie Meyers MD MD rn Baxter, Heather, RN RN hb Gardose, Michele, RN RN mg2 Werner Hudson RN RN tr5
--- NOTE | 2019-01-03 19:09 | EDPHYS ---
Physician Documentation [facility] Name: Carlee Zhou Age: 88 yrs Sex: Female : 1930 Arrival Date: 01/03/2019 Time: 15:05 Bed 28 Private MD: ED Physician Frankie Meyers HPI: 01/03 16:22 This 88 yrs old Female presents to ER via EMS with complaints of abdominal rn pain. 16:22 The patient presents with abdominal pain in the left lower quadrant. Onset: The rn symptoms/episode began/occurred 1 year(s) ago. The symptoms do not radiate. Associated signs and symptoms: Pertinent positives: nausea, Pertinent negatives: blood in stools, chest pain, constipation, diarrhea, dysuria, fever, vomiting, vomiting blood. Modifying factors: The symptoms are alleviated by nothing, the symptoms are aggravated by movement, touching the area. Severity of pain: At its worst the pain was moderate in the emergency department the pain has improved. The patient has experienced similar episodes in the past. Reports LLQ pain, reports > 1 year, but worse over last few days, is intermittent, more painful than has been in past, but similar type of pain. No trauma. Normal ostomy output. No vomiting. No fever. Reports appetite normal. . Historical: - Allergies: 15:09 Sulfa (Sulfonamide Antibiotics); mg2 - Home Meds: 15:09 Prednisone Oral [Active]; irbesartan oral oral [Active]; mg2 - PMHx: 15:09 "leaky heart valve"; Asthma; Hypertension; ulcerative colitis; mg2 - PSHx: 15:09 ileostomy with bag; mg2 - Immunization history:: Flu vaccine is up to date. - Social history:: Smoking status: Patient/guardian denies using tobacco, Patient/guardian denies using alcohol, street drugs, IV drugs. - Ebola Screening: : No symptoms or risks identified at this time. - Family history:: not pertinent. - Hospitalizations: : No recent hospitalization is reported. ROS: 16:22 Constitutional: Negative for fever, chills, and weight loss, Eyes: Negative for injury, rn pain, redness, and discharge, Neck: Negative for injury, pain, and swelling, Cardiovascular: Negative for chest pain, palpitations, and edema, Respiratory: Negative for shortness of breath, cough, wheezing, and pleuritic chest pain, Abdomen/GI: Negative for vomiting, diarrhea, and constipation, MS/Extremity: Negative for injury and deformity, Skin: Negative for injury, rash, and discoloration, Neuro: Negative for headache, weakness, numbness, tingling, and seizure. Exam: 16:22 Constitutional: This is a well developed, well nourished patient who is awake, alert, rn and in no acute distress. Head/Face: Normocephalic, atraumatic. ENT: MMM Cardiovascular: Regular rate and rhythm. No pulse deficits. Respiratory: No increased work of breathing, no retractions or nasal flaring. Abdomen/GI: soft, mild LLQ tenderness, no rebound, no masses, normal ostomy output MS/ Extremity: Pulses equal, no cyanosis. Neurovascular intact. Full, normal range of motion. Equal circumference. Neuro: Awake and alert, GCS 15, oriented to person, place, time, and situation. 5/5 strength bilateral lower ext. Vital Signs: 15:08 BP 128 / 90; Pulse 110; Resp 18; Temp 98.6; Pulse Ox 100% on R/A; Weight 49.9 kg; mg2 Height 5 ft. 1 in. (154.94 cm); Pain 5/10; 17:08 BP 128 / 66; Pulse 85; Resp 17; Pulse Ox 99% on R/A; tr5 18:00 BP 142 / 67; Pulse 60; Resp 17; Pulse Ox 100% on R/A; tr5 15:08 Body Mass Index 20.78 (49.90 kg, 154.94 cm) mg2 MDM: 15:24 Patient medically screened. rn 19:05 Differential diagnosis: bowel obstruction, diverticulitis, Ureterolithiasis. rn 19:05 Data reviewed: vital signs, nurses notes, lab test result(s), radiologic studies, CT rn scan, and as a result, I will discharge patient. Counseling: I had a detailed discussion with the patient and/or guardian regarding: the historical points, exam findings, and any diagnostic results supporting the discharge/admit diagnosis, lab results, radiology results, the need for outpatient follow up, to return to the emergency department if symptoms worsen or persist or if there are any questions or concerns that arise at home. Response to treatment: the patient's symptoms have mildly improved after treatment, and as a result, I will discharge patient. Special discussion: Based on the patient's Hx, exam, and Dx evaluation, there is no indication for emergent surgery or inpatient Tx. It is understood by the patient/guardian that if the Sx's persist or worsen they need to return immediately for re-evaluation. I discussed with the patient/guardian in detail that at this point there is no indication for admission to the hospital. It is understood, however, that if the symptoms persist or worsen the patient needs to return immediately for re-evaluation. ED course: Pain with mild improvement, no acute findings on CT, normal lactate, umbilical hernia easily reducible, pain present for > 1 year, Dr. Duarte evaluated her for this recently, thought more likely back problem/radiculopathy/neuropathy and placed her on gabapentin with slight improvement. Has known back problems and injury in past. Will dc home with prn pain meds and recommend outpt MRi and f/u. Return precautions given and understood.. 01/03 15:35 Order name: Basic Metabolic Panel; Complete Time: 16:22 rn 01/03 15:35 Order name: CBC with Diff; Complete Time: 16:22 rn 01/03 15:35 Order name: Creatinine for Radiology; Complete Time: 16:22 rn 01/03 15:35 Order name: Hepatic Function; Complete Time: 16:22 rn 01/03 15:35 Order name: Lipase; Complete Time: 16:22 rn 01/03 15:35 Order name: CT Abd/Pelvis - PO and IV Contrast; Complete Time: 18:03 rn 01/03 15:35 Order name: IV Saline Lock; Complete Time: 15:57 rn 01/03 15:35 Order name: Labs collected and sent; Complete Time: 15:57 rn Administered Medications: 15:53 Drug: NS 0.9% 500 ml Route: IV; Rate: bolus; Site: right antecubital; tr5 15:54 Drug: Demerol 25 mg {Note: RASS:0.} Route: IVP; Site: right antecubital; tr5 16:41 Follow up: Response: Pain is decreased; RASS: Alert and Calm (0) tr5 17:07 Drug: Demerol 25 mg {Note: RASS:0.} Route: IVP; Site: right antecubital; tr5 18:28 Follow up: Response: Pain is decreased tr5 Disposition: 11/01/19 19:07 Discharged to Home. Impression: Lower abdominal pain, unspecified, Radiculopathy, Polyneuropathy, unspecified. - Condition is Stable. - Discharge Instructions: Abdominal Pain, Adult, Pain Without a Known Cause, Neuropathic Pain, Radicular Pain. - Prescriptions for Tylenol- Codeine #3 300-30 mg Oral Tablet - take 1 tablet by ORAL route every 6 hours As needed; 20 tablet. - Medication Reconciliation Form, Thank You Letter, Antibiotic Education, Prescription Opioid Use form. - Follow up: Private Physician; When: As needed; Reason: Recheck today's complaints, Re-evaluation by your physician. - Problem is chronic. - Symptoms have improved. Signatures: Dispatcher [employer] EDMS Frankie Meyers MD MD rn Gardose, Michele, RN RN mg2 Rodriguez, Tommie, RN RN tr5 Corrections: (The following items were deleted from the chart) 19:57 19:07 01/03/2019 19:07 Discharged to Home. Impression: Lower abdominal pain, tr5 unspecified; Radiculopathy; Polyneuropathy, unspecified. Condition is Stable. Forms are Medication Reconciliation Form, Thank You Letter, Antibiotic Education, Prescription Opioid Use. Follow up: Private Physician; When: As needed; Reason: Recheck today's complaints, Re-evaluation by your physician. Problem is chronic. Symptoms have improved. rn
[2019-01-03 20:12] VITALS: TEMP 98.6
[2019-01-03 20:15] VITALS: BP 142/67; O2SAT 100
== END 2019-01-03 19:57 | disposition home or self-care (01) ==
LOC: ER 15:02
DX: R10.30 Lower abdominal pain, unspecified (principal); M54.10 Radiculopathy, site unspecified; G62.9 Polyneuropathy, unspecified; Z88.2 Allergy status to sulfonamides; J45.909 Unspecified asthma, uncomplicated
CPT/HCPCS: 85025; 80048; 36415; 80076; 83690; 74177; 96374; 99284; Q9967; J2175 ×2; J7040

== ENCOUNTER 2021-04-03 16:49 | Inpatient (IN) | payer OTHER ==
[2021-04-03] MEDS ORDERED: NA CHLORIDE 0.9% 1,000 ML ONE ×2 (18:08→20:25)
[2021-04-03] MEDS ORDERED: METOPROLOL TARTRATE 5 MG/5 ML INJ IV ONE (18:08)
[2021-04-03 18:17] LABS: Absolute Lymphocytes (CBC) 1.1 K/uL (0.7-4.9); Hematocrit 38.1 % (36.0-45.0); Lymphocytes % 9.3 % (15.3-44.8); RBC Red Blood Cell Count 4.21 M/uL (3.86-4.86)
[2021-04-03] MEDS ORDERED: ONDANSETRON 4 MG/2 ML VIAL ONE (18:30)
[2021-04-03] MEDS ORDERED: DIGOXIN 0.25 MG/ML AMP ONE (18:33)
[2021-04-03 18:35] LABS: Protime INR 1.28
[2021-04-03 18:45] LABS: Albumin 3.3 g/dL (3.4-5.0); Bilirubin Direct 0.3 mg/dL (0-0.2); Bilirubin Total 0.8 mg/dL (0.2-1.0); Potassium 4.7 mmol/L (3.5-5.1); Protein, Total 7.8 g/dL (6.4-8.2); Thyroid Stimulating Hormone 1.8 uIU/mL (0.360-3.740)
[2021-04-03 18:49] LABS: Troponin High Sensitivity 130.1 pg/mL (<58.9)
--- NOTE | 2021-04-03 19:12 | ER ---
Nurse's Notes [facility] Name: Carlee Zhou Age: 89 yrs Sex: Female : 1930 Arrival Date: 04/03/2021 Time: 16:51 Bed 2 Private MD: Bassam Duarte C Diagnosis: Abdominal pain, Generalized;Unspecified atrial fibrillation;Altered mental status, unspecified;Unspecified kidney failure-acute on Chronic;Weakness Presentation: 04/03 16:52 Chief complaint: Patient's son or daughter states: 'ate peanutbutter crackers yesterday vg1 evening and drank and Ensure this morning.' Son also states 'shes a little confused too; she cant remember her birthday and at home she didn't know where she was'. EMS states: ABD pain since Sunday, Vomiting on , and hasnt ate in two days. 16:52 Method Of Arrival: EMS: [facility] vg1 17:43 Coronavirus screen: Vaccine status: Patient reports receiving the 2nd dose of the covid vg1 vaccine. Client denies travel out of the [place] in the last 14 days. Ebola Screen: Patient negative for fever greater than or equal to 101.5 degrees Fahrenheit, and additional compatible Ebola Virus Disease symptoms. Initial Sepsis Screen: Does the patient meet any 2 criteria? HR > 90 bpm. Risk Assessment: Do you want to hurt yourself or someone else? Patient reports no desire to harm self or others. Onset of symptoms was March 30, 2021. 17:43 Acuity: CIRA 2 vg1 18:55 Initial Sepsis Screen: Does the patient have a suspected source of infection? No. jl7 Patient's initial sepsis screen is negative. Triage Assessment: 18:11 General: Appears in no apparent distress. comfortable, Behavior is calm, cooperative. vg1 Pain: Complains of pain in right lower quadrant and left lower quadrant. Neuro: Level of Consciousness is awake, alert, obeys commands, Oriented to person, place. GI: Abdomen is round non-distended, obese, Reports lower abdominal pain, nausea, vomiting. Historical: - Allergies: 18:55 Sulfa (Sulfonamide Antibiotics); jl7 - PMHx: 18:55 "leaky heart valve"; Asthma; Hypertension; ulcerative colitis; jl7 - PSHx: 18:55 ileostomy; jl7 - Immunization history:: Adult Immunizations up to date, Client reports receiving the 2nd dose of the Covid vaccine. - Social history:: Smoking status: Patient denies any tobacco usage or history of. Screenin:00 Abuse screen: Denies threats or abuse. Denies injuries from another. Nutritional jl7 screening: No deficits noted. Tuberculosis screening: No symptoms or risk factors identified. Fall Risk IV access (20 points). Total Ortiz Fall Scale indicates No Risk (0-24 pts). Assessment: 18:00 General: Appears in no apparent distress. uncomfortable, Behavior is calm, cooperative, jl7 appropriate for age, drowsy. Pain: Complains of pain in abdomen. Neuro: Level of Consciousness is awake, Drowsy, responds easily to verbal stimuli. Oriented to person, place, time, situation. Cardiovascular: Patient's skin is warm and dry. Rhythm is irregular Chest pain is denied. Respiratory: Airway is patent Respiratory effort is even, unlabored, Respiratory pattern is symmetrical, tachypnea. GI: Abdomen is non-distended. Derm: Skin is dry, Skin is pale, Skin temperature is cool. 21:27 Neuro: Oriented to The pt is confused at times, picking at lines. Her son remains at chyna bedside. . GI: The pt has a colostomy bag to her abdomen. 21:37 General: Report called to ICU and registration called to "flip" the pt. . chyna Vital Signs: 17:43 BP 129 / 84; Pulse 155; Resp 20; Temp 98.7; Pulse Ox 95% ; Weight 81.65 kg; Height 5 vg1 ft. 2 in. (157.48 cm); 18:10 BP 114 / 75; Pulse 144; Resp 23; Pulse Ox 95% ; jl7 18:30 BP 102 / 74; Pulse 130; Resp 23; Pulse Ox 96% ; jl7 18:45 BP 95 / 79; Pulse 132; Resp 21; Pulse Ox 95% ; jl7 19:02 BP 101 / 90; Pulse 141; Resp 21; Pulse Ox 95% ; jl7 21:29 BP 99 / 72; Pulse 129; Resp 20; Temp 98.4; Pulse Ox 93% on R/A; chyna 21:39 BP 107 / 76; Pulse 130; Resp 18; Pulse Ox 95% on R/A; chyna 17:43 Body Mass Index 32.92 (81.65 kg, 157.48 cm) vg1 ED Course: 16:51 Patient arrived in ED. mr 16:51 Bassam Duarte MD is Private Physician. mr 17:52 Triage completed. vg1 17:55 Josse Alonzo MD is Attending Physician. jones 18:00 Inserted saline lock: 20 gauge in left antecubital area, using aseptic technique. Blood vg1 collected. 18:00 Patient has correct armband on for positive identification. Placed in gown. Bed in low jl7 position. Call light in reach. Side rails up X2. latin professor on. Pulse ox on. NIBP on. 18:11 Arm band placed on. vg1 18:12 Alicia Pruett RN is Primary Nurse. jl7 18:49 Notified ED physician of a critical lab result(s). Troponin elevated. ll1 18:50 First set of blood cultures drawn by physician, Second set of blood cultures drawn by jl7 physician. Inserted saline lock: 18 gauge in left EJ, using aseptic technique. Blood collected. 18:53 SARS-COV-2 RT PCR (Document "Date of Onset" if Symptomatic) Sent. 5 18:53 COVID swab sent to lab. 5 19:09 Kvng Watters MD is Hospitalizing Provider. jones 19:20 CT Head Brain wo Cont In Process Unspecified. EDMS 19:21 XRAY Chest (1 view) In Process Unspecified. EDMS 19:23 CT Chest Abdomen Pelvis W/O Contrast In Process Unspecified. EDMS 20:00 Oswald cath inserted, using sterile technique, 16 Fr., by mt, balloon inflated, to chyna gravity drainage, urine specimen collected. 21:27 No provider procedures requiring assistance completed. chyna 21:50 to ICU, on the monitor, with her son at her side, to bed 7. chyna Administered Medications: 18:05 Drug: Lopressor (metoprolol) 2.5 mg Route: IVP; Site: left antecubital; jl7 18:12 Drug: NS 0.9% 1000 ml Route: IV; Rate: 1 bolus; Site: left antecubital; jl7 18:12 Drug: Lopressor (metoprolol) 2.5 mg Route: IVP; Site: left antecubital; jl7 18:15 Drug: Lopressor (metoprolol) 2.5 mg Route: IVP; Site: left antecubital; jl7 18:35 Drug: Digoxin 0.5 mg Route: IVP; Site: left antecubital; jl7 20:40 Drug: Zosyn (piperacillin-tazobactam) 3.375 grams Route: IVPB; Infused Over: 60 mins; as6 Site: left jugular; 20:40 Drug: NS 0.9% 1000 ml Route: IV; Rate: 125 ml/hr; Site: left jugular; as6 20:41 Drug: ProTONIX (pantoprazole) 40 mg Route: IVP; Site: left jugular; as6 Outcome: 19:12 Decision to Hospitalize by Provider. jones 21:28 critical chyna 22:14 Admitted to ICU as6 22:14 Patient left the ED. as6 Signatures: Dispatcher [employer] EDMS Josse Alonzo MD MD cha Rivera, Charlotte Beverly, Alicia Magdaleno RN RN Mary Hall RN RN [email or web address] Yo Chu RN RN llJosep Oh RN RN as6 Irma Berry RN RN chyna Corrections: (The following items were deleted from the chart) 17:52 16:52 Chief complaint: EMS states: ABD pain since Sunday, Vomiting on , and vg1 hasnt ate in two days. vg1
--- NOTE | 2021-04-03 19:13 | EDPHYS ---
Physician Documentation [facility] Name: Carlee Zhou Age: 89 yrs Sex: Female : 1930 Arrival Date: 04/03/2021 Time: 16:51 Bed 2 Private MD: Bassam Duarte C ED Physician Josse Alonzo HPI: 04/03 18:55 This 89 yrs old Female presents to ER via EMS with complaints of Abdominal jones Pain. 18:55 The patient presents with a history of irregular heart beat, heart racing. Context: The jones symptoms occur at rest, with anxiety. Onset: The symptoms/episode began/occurred 3 day(s) ago. Historical: - Allergies: 18:55 Sulfa (Sulfonamide Antibiotics); jl7 - PMHx: 18:55 "leaky heart valve"; Asthma; Hypertension; ulcerative colitis; jl7 - PSHx: 18:55 ileostomy; jl7 - Immunization history:: Adult Immunizations up to date, Client reports receiving the 2nd dose of the Covid vaccine. - Social history:: Smoking status: Patient denies any tobacco usage or history of. ROS: 19:00 Constitutional: Negative for fever, chills, and weight loss, Eyes: Negative for injury, jones pain, redness, and discharge, ENT: Negative for injury, pain, and discharge, Neck: Negative for injury, pain, and swelling, Respiratory: Negative for shortness of breath, cough, wheezing, and pleuritic chest pain, Back: Negative for injury and pain, : Negative for injury, bleeding, discharge, and swelling, MS/Extremity: Negative for injury and deformity, Skin: Negative for injury, rash, and discoloration, Psych: Negative for depression, anxiety, suicide ideation, homicidal ideation, and hallucinations, Allergy/Immunology: Negative for hives, rash, and allergies, Endocrine: Negative for neck swelling, polydipsia, polyuria, polyphagia, and marked weight changes. 19:00 Cardiovascular: Positive for palpitations. 19:00 Abdomen/GI: Positive for abdominal pain, nausea. 19:00 Skin: Positive for pallor. Exam: 19:00 Constitutional: This is a well developed, well nourished patient who is awake, alert, jones and in no acute distress. Head/Face: Normocephalic, atraumatic. Eyes: Pupils equal round and reactive to light, extra-ocular motions intact. Lids and lashes normal. Conjunctiva and sclera are non-icteric and not injected. Cornea within normal limits. Periorbital areas with no swelling, redness, or edema. ENT: Nares patent. No nasal discharge, no septal abnormalities noted. Tympanic membranes are normal and external auditory canals are clear. Oropharynx with no redness, swelling, or masses, exudates, or evidence of obstruction, uvula midline. Mucous membranes moist. Neck: Trachea midline, no thyromegaly or masses palpated, and no cervical lymphadenopathy. Supple, full range of motion without nuchal rigidity, or vertebral point tenderness. No Meningismus. Chest/axilla: Normal chest wall appearance and motion. Nontender with no deformity. No lesions are appreciated. Respiratory: Lungs have equal breath sounds bilaterally, clear to auscultation and percussion. No rales, rhonchi or wheezes noted. No increased work of breathing, no retractions or nasal flaring. Back: No spinal tenderness. No costovertebral tenderness. Full range of motion. Female : Normal external genitalia. MS/ Extremity: Pulses equal, no cyanosis. Neurovascular intact. Full, normal range of motion. Neuro: Awake and alert, GCS 15, oriented to person, place, time, and situation. Cranial nerves II-XII grossly intact. Motor strength 5/5 in all extremities. Sensory grossly intact. Cerebellar exam normal. Normal gait. Psych: Awake, alert, with orientation to person, place and time. Behavior, mood, and affect are within normal limits. 19:00 Cardiovascular: Rate: tachycardic, Rhythm: irregularly irregular, Pulses: Pulses are 4+ in bilateral radial, brachial, femoral, popliteal, posterior tibial and and dorsalis pedis arteries.. Heart sounds: normal, Edema: is not appreciated, JVD: is noted bilaterally, to 2 cm. 19:00 ECG was reviewed by the Attending Physician. Vital Signs: 17:43 BP 129 / 84; Pulse 155; Resp 20; Temp 98.7; Pulse Ox 95% ; Weight 81.65 kg; Height 5 vg1 ft. 2 in. (157.48 cm); 18:10 BP 114 / 75; Pulse 144; Resp 23; Pulse Ox 95% ; jl7 18:30 BP 102 / 74; Pulse 130; Resp 23; Pulse Ox 96% ; jl7 18:45 BP 95 / 79; Pulse 132; Resp 21; Pulse Ox 95% ; jl7 19:02 BP 101 / 90; Pulse 141; Resp 21; Pulse Ox 95% ; jl7 21:29 BP 99 / 72; Pulse 129; Resp 20; Temp 98.4; Pulse Ox 93% on R/A; chyna 21:39 BP 107 / 76; Pulse 130; Resp 18; Pulse Ox 95% on R/A; chyna 17:43 Body Mass Index 32.92 (81.65 kg, 157.48 cm) vg1 Procedures: 19:20 Peripheral line: by aseptic technique a peripheral line was placed in the left external jones jugular vein. MDM: 17:55 Patient medically screened. jones 19:03 Differential diagnosis: arrythmia, dehydration, AAA, bowel obstruction, cholecystitis, jones Cholelithiasis, diverticulitis, gastritis, sympomatic leaking abdominal aortic aneurysm, Mesenteric ischemia or infarction, myocardia ischemia or infarction, non-specific abd pain, pancreatitis, Peptic Ulcer Disease, Pyelonephritis, Ureterolithiasis, urinary tract infection. Differential Diagnosis altered mental status, sepsis. Data reviewed: vital signs, nurses notes, EMS record, lab test result(s), EKG, radiologic studies, CT scan, plain films. Data interpreted: monitor technician: rate is 141 beats/min, rhythm is atrial fibrillation, Pulse oximetry: on room air is 95 %. Test interpretation: by ED physician or midlevel provider: ECG, plain radiologic studies. Counseling: I had a detailed discussion with the patient and/or guardian regarding: the historical points, exam findings, and any diagnostic results supporting the discharge/admit diagnosis, lab results, radiology results, the need for further work-up and treatment in the hospital. 04/03 17:59 Order name: Basic Metabolic Panel [facility] 04/03 17:59 Order name: CBC with Diff jones 04/03 17:59 Order name: LFT's [facility] 04/03 17:59 Order name: Magnesium [facility] 04/03 17:59 Order name: NT PRO-BNP [facility] 04/03 17:59 Order name: PT-INR; Complete Time: 18:56 jones 04/03 17:59 Order name: Troponin HS [facility] 04/03 17:59 Order name: Lipase [facility] 04/03 17:59 Order name: Urine Culture [facility] 04/03 17:59 Order name: SARS-COV-2 RT PCR (Document "Date of Onset" if Symptomatic); Complete Time: jones 20:43 04/03 17:59 Order name: Blood Culture Adult (2) [facility] 04/03 17:59 Order name: Procalcitonin; Complete Time: 20:43 [facility] 04/03 17:59 Order name: Lactate; Complete Time: 20:43 [facility] 04/03 17:59 Order name: Type And Screen; Complete Time: 20:43 [facility] 04/03 17:59 Order name: XRAY Chest (1 view); Complete Time: 20:43 [facility] 04/03 17:59 Order name: Basic Metabolic Panel [facility] 04/03 17:59 Order name: CBC with Automated Diff; Complete Time: 18:23 [facility] 04/03 17:59 Order name: Liver (Hepatic) Function [facility] 04/03 17:59 Order name: Magnesium [facility] 04/03 18:27 Order name: Thyroid Stimulating Hormone [facility] 04/03 18:58 Order name: CT Chest Abdomen Pelvis W/O Contrast; Complete Time: 20:43 [facility] 04/03 18:58 Order name: CT Head Brain wo Cont; Complete Time: 20:43 [facility] 04/03 20:37 Order name: Urine Dipstick-Ancillary; Complete Time: 20:43 [facility] 04/03 17:59 Order name: EKG; Complete Time: 18:00 [facility] 04/03 17:59 Order name: Cardiac monitoring; Complete Time: 18:34 [facility] 04/03 17:59 Order name: EKG - Nurse/Tech; Complete Time: 18:34 [facility] 04/03 17:59 Order name: IV Saline Lock; Complete Time: 18:34 [facility] 04/03 17:59 Order name: Labs collected and sent; Complete Time: 18:34 [facility] 04/03 17:59 Order name: O2 Per Protocol; Complete Time: 18:34 [facility] 04/03 17:59 Order name: O2 Sat Monitoring; Complete Time: 18:34 [facility] 04/03 17:59 Order name: Urine Dipstick-Ancillary (obtain specimen); Complete Time: 20:45 [facility] 04/03 17:59 Order name: IV Saline Lock - Large Bore; Complete Time: 18:12 [facility] 04/03 18:56 Order name: Oswald; Complete Time: 20:37 jones 04/03 21:17 Order name: CONS Physician Consult EDMS EC:00 Rate is 159 beats/min. Rhythm is irregularly irregular. QRS [place] is Normal. CO interval jones is normal. QRS interval is normal. QT interval is normal. No Q waves. T waves are Normal. No ST changes noted. Clinical impression: Atrial Fibrillation and No evidence of ischemia. Interpreted by me. Reviewed by me. Administered Medications: 18:05 Drug: Lopressor (metoprolol) 2.5 mg Route: IVP; Site: left antecubital; jl7 18:12 Drug: NS 0.9% 1000 ml Route: IV; Rate: 1 bolus; Site: left antecubital; jl7 18:12 Drug: Lopressor (metoprolol) 2.5 mg Route: IVP; Site: left antecubital; jl7 18:15 Drug: Lopressor (metoprolol) 2.5 mg Route: IVP; Site: left antecubital; jl7 18:35 Drug: Digoxin 0.5 mg Route: IVP; Site: left antecubital; jl7 20:40 Drug: Zosyn (piperacillin-tazobactam) 3.375 grams Route: IVPB; Infused Over: 60 mins; as6 Site: left jugular; 20:40 Drug: NS 0.9% 1000 ml Route: IV; Rate: 125 ml/hr; Site: left jugular; as6 20:41 Drug: ProTONIX (pantoprazole) 40 mg Route: IVP; Site: left jugular; as6 Disposition Summary: 04/03/21 19:12 Hospitalization Ordered Hospitalization Status: Inpatient Admission jones Provider: Kvng Watters cha Condition: Fair jones Problem: new jones Symptoms: have improved jones Bed/Room Type: Standard jones Location: Intensive Care Unit(04/03/21 21:25) mw Room Assignment: 7-(04/03/21 21:25) Diagnosis - Abdominal pain, Generalized jones - Unspecified atrial fibrillation jones - Altered mental status, unspecified jones - Unspecified kidney failure - acute on Chronic jones - Weakness jones Forms: - Medication Reconciliation Form jones - SBAR form jones Signatures: Dispatcher [employer] EDNE Elizabeth Nogueira RN RN mw Anderson, Corey, MD MD cha Marinas, Patrick, CASH ACCOUNTANT CASH ACCOUNTANT pm1 Alicia Pruett RN RN jl7 Josep Olivia RN RN as6 Corrections: (The following items were deleted from the chart) 18:27 18:09 THYROID STIMULAT HORMONE+C.LAB.BRZ ordered. EDMS EDMS 18:58 18:00 Chest Abdomen Pelvis W Con+CT.RAD.BRZ ordered. EDMS EDMS 21:25 19:12 Telemetry/MedSurg (Inpatient) [facility] 21:25 19:12 [facility]
--- NOTE | 2021-04-03 20:04 | RAD REPORT ---
EXAM DESCRIPTION: CT - Head Brain Wo Cont - 04/03/2021 7:23 pm CLINICAL HISTORY: Dizziness;Confused COMPARISON: SINUS W O CONTRAST dated 12/14/2010; HEAD BRAIN W O CONTRAST dated 04/21/2010 TECHNIQUE: Axial 5 mm thick images of the head were obtained without IV contrast. All CT scans are performed using dose optimization technique as appropriate and may include automated exposure control or mA/KV adjustment according to patient size. FINDINGS: No intracranial hemorrhage, mass, edema or shift of mid-line structures. No acute cortical based infarction. No cortical edema or sulcal effacement. Atrophy and chronic ischemic changes are n ot substantially different from the 2011 study. These are mild to moderate for age. No abnormal extra -axial fluid collections. Ventricles are in proportion to the volume loss. Arterial and physiologic c alcifications are present. Asymmetry is created by head tilt. Mastoid air cells are clear. Chronic sphenoid, maxillary and frontal sinusitis changes are present. No acute bony findings. IMPRESSION: Negative non-contrast CT head examination for acute intracranial finding Atrophy and chronic ischemic changes are mild to moderate for age and not substantially different fro m the 2010 remote study. Chronic paranasal sinusitis.
--- NOTE | 2021-04-03 20:13 | RAD REPORT ---
EXAM DESCRIPTION: CT - Chest Abd Pelvis Wo Con - 04/03/2021 7:23 pm CLINICAL HISTORY: Cough;Dyspnea Cough;Dyspnea, abdominal distention, lethargy COMPARISON: Chest Single View dated 04/03/2021; Abdomen Pelvis W Contrast dated 01/03/2019 TECHNIQUE: Axial 5 millimeter thick images of the chest, abdomen and pelvis were obtained without IV contrast. Oral contrast was administered. All CT scans are performed using dose optimization technique as appropriate and may include automated exposure control or mA/KV adjustment according to patient size. FINDINGS: No peripheral suspicion mass or consolidation. Benign granuloma noted. Interstitial thicke abdifatah is present throughout the lung titus with a small right pleural effusion present. Interstitial pattern could indicate chronic scarring, edema, infiltrate or a combination. No pneumothorax. No pleu ral based mass. No endobronchial lesion identifiable. Mediastinal and right hilar granulomatous calci fications are present. Coronary artery calcifications are present. No chest wall mass or abnormal axi llary lymphadenopathy seen. Mediastinal and hilar regions show no mass or lymphadenopathy. Heart si ze is normal. Small pericardial effusion is present. The liver, spleen and pancreas show no significant findings for non contrast imaging. Gallbladder an d biliary tree are normal. No hydronephrosis or suspicious renal mass. Isodense masses and pyelonephritis cannot be excluded on non contrast imaging. No adrenal abnormalities. No urinary bladder abnormalities. No gastric dilatation or gastric wall thickening. No dilated small bowel loops present. A 4 centimete r diameter midline supraumbilical ventral hernia is present. This contains a loop of small bowel that shows no wall thickening or edema. Right mid abdomen colostomy site is again noted. There is an asso ciated 8 centimeter diameter peristomal hernia containing bowel. The herniated bowel shows no wall th ickening or edema. The remnant rectal soft tissue is not significantly different from comparison. The re is a trace amount of stranding in the perirectal fat near the distal portion of the rectum. This i s nonspecific. No clear mass or abnormal lymphadenopathy seen. No free air, free fluid or pneumatosis. No bulky lymphadenopathy, omental thickening or mass. Advanced bony degenerative changes are present. Vertebroplasty changes are present in L3. IMPRESSION: No lung parenchymal mass or consolidations seen. Interstitial thickening is present thro ughout the lung titus which could be chronic scarring, edema, infiltrate or a combination. No acute or emergent findings in the abdomen or pelvis. The remnant rectal soft tissues are not clear ly different from comparison in 2019. There is a minimal amount of edema in the adjacent fat but no l ymphadenopathy or focal mass lesion. The right colostomy site has an associated 8 centimeter diameter peristomal hernia containing bowel. There is a smaller supraumbilical midline ventral hernia also containing bowel. None of the herniated bowel shows wall thickening or edema. The herniated fat is not congested or edematous. CT abdomen and pelvis imaging shows no significant or suspicious finding.
--- NOTE | 2021-04-03 20:14 | RAD REPORT ---
EXAM DESCRIPTION: RAD - Chest Single View - 04/03/2021 7:21 pm CLINICAL HISTORY: COUGH COMPARISON: Portable 03/04/2018 TECHNIQUE: AP portable chest image was obtained 04/03/2021 7:21 pm . FINDINGS: Lung volumes are low. Interstitial fibrotic pattern is not substantially different. Severi ty of disease could mask superimposed edema or infiltrate. No focal consolidation or mass. Heart size is accentuated by shallow inspiration. Pulmonary vasculature within normal limits. No measurable pleural effusion and no pneumothorax. No acute bony abnormality seen. No acute aortic findings suspected. IMPRESSION: Chronic interstitial lung disease similar to comparison. This could mask edema or infilt rate.
[2021-04-03] MEDS ORDERED: PANTOPRAZOLE 40 MG INJ ONE (20:25)
[2021-04-03] MEDS ORDERED: NA CHLORIDE 0.9% 100 ML ONE (20:25)
[2021-04-03] MEDS ORDERED: PIPERACIL/TAZO 3.375 GM VIAL IV ONE (20:25)
[2021-04-03 20:37] LABS: Urine Blood 1+ (Negative); Urine Glucose Negative (Negative); Urine Protein 2+ (Negative); Urine Specific Gravity >=1.030 (1.005-1.030)
[2021-04-03] MEDS: ENOXAPARIN 80 MG/0.8 ML SQ SCH (22:36)
[2021-04-03] MEDS ORDERED: ACETAMINOPHEN 500 MG TAB PO PRN (22:36)
[2021-04-03] MEDS ORDERED: ALBUTEROL 2.5 MG/3 ML NEB SOL NEB PRN (22:36)
[2021-04-03] MEDS ORDERED: IPRATROPIUM BROM 0.5MG/2.5ML NEB PRN (22:36)
[2021-04-03] MEDS: DILTIAZEM HCL 180 MG SR CAP PO SCH (22:36)
[2021-04-03] MEDS ORDERED: HALOPERIDOL LACT 5 MG/ML INJ IV ONE (22:44)
[2021-04-03] MEDS ORDERED: HALOPERIDOL LACT 5 MG/ML INJ ONE (22:51)
--- NOTE | 2021-04-03 22:52 | P.HP ---
Certification for Inpatient Patient admitted to: Inpatient With expected LOS: >2 Midnights Patient will require the following post-hospital care: None Practitioner: I am a practitioner with admitting privileges, knowledge of patient current condition, hospital course, and medical plan of care. Services: Services provided to patient in accordance with Admission requirements found in Title 42 Section 412.3 of the Code of Federal Regulations Patient History Date of Service: 04/03/21 Reason for admission: afib with RVR, UTI History of Present Illness: Ms. Zhou is an 89 yo F with HTN, atrial fibrillation, ulcerative colitis s/p ileostomy, asthma who presents with abdominal pain and AMS. Per son, she saw her primary care doctor on Sunday for abdominal pain. The pain continued to worsen, and over the past few days she has been staying in bed and not eating. Today, she began to vomit and become confused. Her son says she is becoming delirious, restless, and having hallucinations. Denies fever. Upon arrival to ED, she is in afib with HR in the 150s, given IV lopressor x3 and IV digoxin. UA reveals urinary tract infection. WBC 11.5 BUN 31 Cr 1.69 GFR 28 Glu 148 Lactate 2.5 Troponin 130.[address] HEAD IMPRESSION: Negative non-contrast CT head examination for acute intracranial finding Atrophy and chronic ischemic changes are mild to moderate for age and not substantially different from the 2011 remote study. Chronic paranasal sinusitis CT Chest Abdomen Pelvis IMPRESSION: No lung parenchymal mass or consolidations seen. Interstitial thickening is present throughout the lung titus which could be chronic scarring, edema, infiltrate or a combination. No acute or emergent findings in the abdomen or pelvis. The remnant rectal soft tissues are not clearly different from comparison in 2019. There is a minimal amount of edema in the adjacent fat but no lymphadenopathy or focal mass lesion. The right colostomy site has an associated 8 centimeter diameter peristomal hernia containing bowel. There is a smaller supraumbilical midline ventral hernia also containing bowel. None of the herniated bowel shows wall thickening or edema. The herniated fat is not congested or edematous. CT abdomen and pelvis imaging shows no significant or suspicious finding. CXR IMPRESSION: Chronic interstitial lung disease similar to comparison. This could mask edema or infiltrate. Allergies Sulfa (Sulfonamide Antibiotics) [Sulfa(Sulfonamide Antibiotics)] Allergy (Verified 04/28/15 22:15) Hives Home Medications: Diltiazem Cd [Cardizem Cd] 180 mg PO DAILY 02/19/18 Olmesartan Medoxomil [Benicar] 20 mg PO DAILY 02/19/18 Prednisone [Lulú] 5 mg PO DAILY 02/19/18 Zolpidem Tartrate 10 mg PO BEDTIME 02/19/18 Famotidine [Pepcid] 40 mg PO BEDTIME 04/03/21 Gabapentin 300 mg PO TID 04/03/21 - Past Medical/Surgical History Diabetic: No -: HTN -: ASTHMA -: LUMBAR FX 3 -: LEFT HIP PAIN -: atrial fibrillation -: ulcerative colitis -: BACK SX -: ILEOSTOMY - Family History Family History: Reviewed- Non-Contributory - Family History Father -: Heart disease, Hypertension, Stroke Mother -: Cancer Notes: non hodkins - Social History Smoking Status: Never smoker Alcohol use: No CD- Drugs: No Caffeine use: Yes Place of Residence: Home Review of Systems 10-point ROS is otherwise unremarkable General: Malaise Eyes: Unremarkable ENT: Unremarkable Respiratory: Unremarkable Cardiovascular: Unremarkable Gastrointestinal: Nausea, Vomiting, Abdominal Pain Genitourinary: Unremarkable Musculoskeletal: Unremarkable Integumentary: Unremarkable Neurological: Confusion, As per HPI Lymphatics: Unremarkable Physical Examination - Vital Signs Temperature: 98.4 F Blood Pressure: 107/76 Pulse: 130 Respirations: 18 - Physical Exam General: Alert, In no apparent distress, Confused, Delirious HEENT: Atraumatic, PERRLA, Mucous membr. moist/pink, EOMI, Sclerae nonicteric Neck: Supple, 2+ carotid pulse no bruit, No LAD, Without JVD or thyroid abnormality Respiratory: Normal air movement, Crackles/rales Cardiovascular: No edema, Normal S1 S2, Irregular heart rate/rhythm Capillary refill: <2 Seconds Gastrointestinal: Normal bowel sounds (colostomy bag intact ), No tenderness Musculoskeletal: No tenderness Integumentary: No rashes Neurological: Normal gait, Normal speech, Normal strength at 5/5 x4 extr, Normal tone, Sensation intact, Abnormal affect Lymphatics: No axilla or inguinal lymphadenopathy Urinary: Oswald catheter - Studies Laboratory Data (last 24 hrs) 04/03/21 18:00: PT 14.7 H, INR 1.28 04/03/21 18:00: WBC 11.50 H, Hgb 12.2, Hct 38.1, Plt Count 302 04/03/21 18:00: Sodium 137, Potassium 4.7, BUN 31 H, Creatinine 1.69 H, Glucose 148 H, Magnesium 2.0, Total Bilirubin 0.8, AST 36, ALT 45, Alkaline Phosphatase 153 H, Lipase 96 Assessment and Plan - Problems (Diagnosis) (1) Atrial fibrillation with RVR Current Visit: Yes Status: Acute (2) Asthma Onset Date: 04/29/15 Current Visit: No Status: Chronic Qualifiers: Asthma severity: unspecified severity Asthma persistence: unspecified Asthma complication type: uncomplicated Qualified Code(s): J45.909 - Unspecified asthma, uncomplicated (3) Hyperlipidemia Onset Date: 04/29/15 Current Visit: No Status: Chronic Qualifiers: Hyperlipidemia type: unspecified Qualified Code(s): E78.5 - Hyperlipidemia, unspecified (4) Hypertension Onset Date: 04/29/15 Current Visit: No Status: Chronic Qualifiers: Hypertension type: primary hypertension Qualified Code(s): I10 - Essential (primary) hypertension (5) UTI (urinary tract infection) Onset Date: 04/29/15 Current Visit: No Status: Acute Qualifiers: Urinary tract infection type: acute cystitis Hematuria presence: with hematuria Qualified Code(s): N30.01 - Acute cystitis with hematuria (6) Ulcerative colitis Onset Date: 04/29/15 Current Visit: No Status: Chronic Qualifiers: Ulcerative colitis location: unspecified ulcerative colitis location Digestive disease complication type: without complication Qualified Code(s): K51.90 - Ulcerative colitis, unspecified, without complications - Plan cardiology consulted trend troponins, repeat EKG continue home diltiazem, IV lopressor PRN full dose lovenox once daily ECHO pending urinalysis, urine culture, and blood cultures pending continue IV zosyn fall precautions reconcile and continue home medications Discharge Plan: Home Plan to discharge in: 72 Hours - Advance Directives Does patient have a Living Will: No Does patient have a Durable POA for Healthcare: No - Code Status/Comfort Care Code Status Assessed: Yes (full code ) Critical Care: No Time Spent Managing Pts Care (In Minutes): 70
[2021-04-03] MEDS: METOPROLOL TARTRATE 5 MG/5 ML INJ IV PRN (23:01)
[2021-04-03 23:15] VITALS: BMI 34.9
[2021-04-04 05:50] LABS: Absolute Lymphocytes (CBC) 0.9 K/uL (0.7-4.9); Hematocrit 38.3 % (36.0-45.0); Lymphocytes % 8.1 % (15.3-44.8); MPV 9.3 fL (7.6-11.3); RBC Red Blood Cell Count 4.16 M/uL (3.86-4.86)
[2021-04-04] MEDS: INSULIN -REGULAR HUMAN 50 UNIT/0.5 ML ML SQ SCH ×4 (07:30→20:38)
[2021-04-04 07:56] LABS: Albumin 2.8 g/dL (3.4-5.0); Bilirubin Total 0.7 mg/dL (0.2-1.0); Phosphorus 3.8 mg/dL (2.5-4.9); Potassium 4.8 mmol/L (3.5-5.1); Protein, Total 6.6 g/dL (6.4-8.2)
[2021-04-04] MEDS: FUROSEMIDE 20 MG/ 2ML VIAL IV SCH (09:20)
[2021-04-04] MEDS: CEFTRIAXONE 1,000 MG in NA CHLORIDE 0.9% 50 ML IVPB SCH (09:29)
[2021-04-04] MEDS: DILTIAZEM HCL 180 MG SR CAP PO SCH (10:11)
[2021-04-04] MEDS: METOPROLOL TARTRATE 5 MG/5 ML INJ IV PRN (12:47)
[2021-04-04 16:47] LABS: Magnesium 1.6
[2021-04-04] MEDS: METOPROLOL TAR 25 MG TAB PO SCH ×2 (16:47→18:00)
[2021-04-04] MEDS ORDERED: DIGOXIN 0.25 MG/ML AMP IV ONE (17:00)
[2021-04-04] MEDS ORDERED: predniSONE 20 MG TAB PO ONE (21:27)
[2021-04-04] MEDS: ENOXAPARIN 80 MG/0.8 ML SQ SCH (21:52)
[2021-04-04] MEDS: ZOLPIDEM TARTRATE 5 MG TABLET PO SCH (22:09)
[2021-04-05 04:34] LABS: Absolute Lymphocytes (CBC) 0.8 K/uL (0.7-4.9); Hematocrit 35.9 % (36.0-45.0)
[2021-04-05 05:03] LABS: Albumin 2.7 g/dL (3.4-5.0); Phosphorus 3.2 mg/dL (2.5-4.9); Potassium 4.6 mmol/L (3.5-5.1)
[2021-04-05] MEDS: METOPROLOL TAR 25 MG TAB PO SCH ×2 (05:29→17:11)
[2021-04-05] MEDS: INSULIN -REGULAR HUMAN 50 UNIT/0.5 ML ML SQ SCH ×5 (07:30→21:37)
[2021-04-05] MEDS: CEFTRIAXONE 1,000 MG in NA CHLORIDE 0.9% 50 ML IVPB SCH (08:42)
[2021-04-05] MEDS: FAMOTIDINE 20 MG/2 ML VIAL IV SCH (08:42)
[2021-04-05] MEDS: FUROSEMIDE 20 MG/ 2ML VIAL IV SCH (08:43)
[2021-04-05] MEDS: DIGOXIN 0.25 MG TABLET PO SCH (08:43)
[2021-04-05] MEDS ORDERED: predniSONE 20 MG TAB PO SCH (09:00)
--- NOTE | 2021-04-05 09:07 | PN ---
Date of Progress Note: 04/05/2021 Ms. Zhou is 89, was seen yesterday because of atrial fibrillation. She had came in with abdominal pain. Has been treated with antibiotics. Has a history of regurgitation, ulcerative colitis, hypert ension, and asthma. She is now on beta-darya. Had received 1 dose of digoxin. She is being switc hed from Lovenox to Eliquis. She remains in atrial fibrillation at a rate of 110. No cardiac sympto ms. I will continue her beta-darya at 25 b.i.d. I will start her on digoxin 0.25 mg daily. I margarita lly would like to avoid amiodarone or antiarrhythmics on her if we can avoid it. I will continue to follow. SERGIO Voice ID: [id number] Report ID: [id number]
--- NOTE | 2021-04-05 09:49 | CON ---
Date of Consultation: 04/04/[address] The patient admitted to Dr. Watters on 04/03/2021. I saw the patient 04/04/2021. Reason For Consultation: Rapid atrial fibrillation. History Of Present Illness: Ms. Zhou is 89. Was admitted with elevated procalcitonin, possible se psis. She is on antibiotics. Chest x-ray showed chronic interstitial changes. Had a CT of her ches t, hip, and pelvis, all were negative. Creatinine was 1.7. Troponin is 115. BNP is 3894. Has a hi story of mitral regurgitation, ulcerative colitis, asthma, hypertension. Came in with altered mental status and confusion. Found to have an atrial fibrillation at a rate of 150. She does not have any cardiac complaint. Her most of complaint was abdominal pain. Past Medical History: As stated above. Allergies: SHE IS ALLERGIC TO SULFA. Review of Systems: Negative. Social History: Negative. Family History: Negative. Medications: At home supposed to be diltiazem, Benicar, Neurontin, and prednisone. Physical Examination: Vital Signs: She was in no acute distress, but her heart rate was 138. Atrial fibrillation. Afebri le. HEENT: Negative. Neck: Supple with no bruit. Chest: Reveals crackles both bases. Cardiac: Revealed atrial fibrillation. Abdomen: Benign. Extremities: Revealed no clubbing, cyanosis, or edema. Diagnostic Data: As stated earlier. Impression And Plan: Atrial fibrillation, new onset with rapid ventricular response. I will start h er on beta-darya 25 mg b.i.d. of metoprolol, start on digoxin 0.25 mg daily. Obtain a 2D echocardi ogram. Continue Lovenox. At her age, I surely would like to avoid amiodarone if possible. We will see what her echocardiogram shows. Her other issues including mitral regurgitation, ulcerative colit is, asthma and hypertension are stable. She is on antibiotics. Her elevated troponin and BNP are se condary to demand ischemia. I will continue to follow her. NB/MODL Voice ID: [id number] Report ID: [id number]
[2021-04-05 13:15] LABS: Magnesium 1.4
--- NOTE | 2021-04-05 14:16 | ECHO ---
HEIGHT: 5 ft 2 in WEIGHT: 191 lb 0 oz DATE OF STUDY: 04/05/[address]: Joshua Carlson 2-DIMENSIONAL: YES M.MODE: YES DOPPLER: YES COLOR FLOW: YES TDS: NO PORTABLE: NO DEFINITY: NO BUBBLE STUDY: NO DIAGNOSIS: ATRIAL FIBRILLATION CARDIAC HISTORY: CATHERIZATION: SURGERY: PROSTHETIC VALVE: PACEMAKER: MEASUREMENTS (cm) DIASTOLIC (NORMALS) SYSTOLIC (NORMALS) IVSd 1.2 (0.6-1.2) LA Diam 4.1 (1.9-4.0) LVEF 36% LVIDd 4.0 (3.5-5.7) LVIDs 3.4 (2.0-3.5) %FS 17% LVPWd 1.2 (0.6-1.2) Ao Diam 2.6 (2.0-3.7) 2 DIMENSIONAL ASSESSMENT: RIGHT ATRIUM: NORMAL LEFT ATRIUM: DILATED RIGHT VENTRICLE: NORMAL LEFT VENTRICLE: NORMAL SIZE TRICUSPID VALVE: NORMAL MITRAL VALVE: NORMAL PULMONIC VALVE: NORMAL AORTIC VALVE: STENOTIC PERICARDIAL EFFUSION: NONE AORTIC ROOT: NORMAL LEFT VENTRICULAR WALL MOTION: MODERATE GLOBAL HYPOKINESIS. DOPPLER/COLOR FLOW: MILD TRICUSPID REGURGITATION. RIGHT VENTRICULAR SYSTOLIC PRESSURE 69 mmHg. COMMENTS: MODERATE GLOBAL HYPOKINESIS. LEFT VENTRICULAR EJECTION FRACTION 36%. SEVERE PULMONARY HYPERTENSION. MILD TRICUSPID REGURGITATION. RIGHT VENTRICULAR SYSTOLIC PRESSURE 69 mmHg. MODERATE AORTIC STENOSIS. AORTIC VALVE AREA 1.0 [employer] SQUARED. TECHNOLOGIST: Monica CHERY
[2021-04-05] MEDS: ZOLPIDEM TARTRATE 5 MG TABLET PO SCH (17:11)
--- NOTE | 2021-04-05 18:34 | PN ---
Date of Progress Note: 04/04/2021 Subjective: The patient was seen for followup this evening. She was lying in bed in ICU. I have re viewed her current hospital records. She came in with altered mental status, which has resolved now. She was able to recognize me and answer all the questions appropriately. Objective: Vital Signs: Reviewed. HEENT: Unremarkable. Lungs: Clear to auscultation. Heart: Sounds normal. Abdomen: Soft. Bowel sounds normal. No guarding, rigidity, tenderness, distention. Extremities: No leg edema. Laboratory Data: White count today is 10.8, hemoglobin 12.1, platelets 225. Sodium 140, potassium 4 .8, chloride 110, bicarb 24, BUN 30, creatinine 1.77, glucose 111. Liver function tests unremarkable . Urine culture pending. Blood culture negative. Impression: 1.Urinary tract infection. 2.Rule out sepsis. 3.Toxic encephalopathy, improved. 4.Volume depletion. 5.Chronic steroid therapy. Plan: The patient is on chronic steroid therapy with maintenance dose of prednisone 5 mg daily and c onsidering that, I will go ahead and give her 20 mg prednisone p.o. x1 dose tonight and starting mary rrow, she will receive 20 mg prednisone daily. We will go ahead and continue current IV antibiotic, which is ceftriaxone. Follow up on culture results and once we get the culture results back, then we will decide about culture specific antibiotic. Consult Physical Therapy to help ambulate the patien t. I will repeat blood work tomorrow. I will see her tomorrow morning for followup and we will deci de if we can transfer her out of ICU to regular room tomorrow or not. Details were discussed with th e patient's [id number]. Continue current DVT prophylaxis. Continue current anticoagulation the rapy, which is Lovenox and continue metoprolol for atrial fibrillation. We will also continue to follow with Cardio logy. NIDHI/MODL Voice ID: [id number] Report ID: [id number]
--- NOTE | 2021-04-05 18:55 | PN ---
Date of Progress Note: 04/05/2021 Subjective: The patient was seen this morning for followup. She was lying in bed in ICU. No nausea , vomiting and she slept very well last night. Objective: HEENT: Unremarkable. Lungs: Clear to auscultation. Heart: Sounds normal. Abdomen: Soft. Bowel sounds normal. No guarding, rigidity, tenderness, or distention. Extremities: No leg edema. Laboratory Data: White count 10.8, hemoglobin 11.3, platelets 292. Sodium 141, potassium 4.6, chlor phil 109, bicarb 25, BUN 28, creatinine 1.58, glucose 94. Impression: 1.Urinary tract infection. 2.Toxic encephalopathy. 3.Generalized weakness. 4.Debility. 5.Anemia. 6.Hypertension. 7.Chronic steroid therapy. Plan: We will go ahead and continue current prednisone. Physical Therapy to work with the patient. Continue current IV antibiotic. Urine culture is pending. Blood culture negative so far. We will continue home medications per order. We will transfer the patient out of ICU to regular room with quin toussaint current orders and see copy of orders for details. Details and plan of treatment discussed with the patient. NIDHI/MODL Voice ID: [id number] Report ID: [id number]
[2021-04-05] MEDS: ONDANSETRON 4 MG/2 ML VIAL IV PRN (21:38)
[2021-04-06 05:00] LABS: Absolute Lymphocytes (CBC) 0.9 K/uL (0.7-4.9); Hematocrit 33.8 % (36.0-45.0); Lymphocytes % 7.9 % (15.3-44.8); RBC Red Blood Cell Count 3.74 M/uL (3.86-4.86)
[2021-04-06] MEDS: METOPROLOL TAR 25 MG TAB PO SCH ×2 (05:38→06:00)
[2021-04-06 06:13] LABS: Albumin 2.7 g/dL (3.4-5.0); Phosphorus 2.6 mg/dL (2.5-4.9); Potassium 4.5 mmol/L (3.5-5.1)
[2021-04-06] MEDS: INSULIN -REGULAR HUMAN 50 UNIT/0.5 ML ML SQ SCH ×4 (07:17→21:00)
[2021-04-06] MEDS: CEFTRIAXONE 1,000 MG in NA CHLORIDE 0.9% 50 ML IVPB SCH (08:10)
[2021-04-06] MEDS: FAMOTIDINE 20 MG/2 ML VIAL IV SCH (08:11)
[2021-04-06] MEDS: DIGOXIN 0.25 MG TABLET PO SCH (08:11)
[2021-04-06] MEDS: FUROSEMIDE 20 MG/ 2ML VIAL IV SCH (08:11)
[2021-04-06] MEDS: METOPROLOL TAR 50 MG TAB PO SCH ×2 (08:12→17:28)
--- NOTE | 2021-04-06 08:45 | RAD REPORT ---
EXAM DESCRIPTION: RAD - Chest Single View - 04/06/2021 8:30 am CLINICAL HISTORY: Afib COMPARISON: Chest Single View dated 04/03/2021; Chest Single View dated 03/04/2018; Abdomen Acute Ser ies dated 02/20/2018; ABDOMEN ACUTE SERIES dated 04/28/2015 FINDINGS: Lines: None. Lungs: Interstitial prominence is noted. Pleural: No significant pleural effusions or pneumothorax. Cardiac: Cardiomegaly. Bones: No acute fractures. Other: IMPRESSION: Chronic changes without superimposed acute process identified.
[2021-04-06] MEDS ORDERED: predniSONE 5 MG TAB PO SCH (09:00)
[2021-04-06 12:25] LABS: Magnesium 1.5
[2021-04-06] MEDS: ONDANSETRON 4 MG/2 ML VIAL IV PRN (12:40)
--- NOTE | 2021-04-06 18:31 | PN ---
Date of Progress Note: 04/06/2021 Subjective: The patient was seen this morning for followup. Lying in bed, not in distress. She was sleeping, arousable, not in distress. She was having intermittent confusion as reported by nursing staff. Denies any chest pain, shortness of breath. Objective: Vital Signs: Reviewed. HEENT: Unremarkable. Lungs: Clear to auscultation. Not using any accessory muscles of respiration. Heart: Sounds normal. Abdomen: Soft. Bowel sounds normal. No guarding, rigidity, tenderness, distention. Extremities: No leg edema. Laboratory Data: White count 11.30, hemoglobin 10.9, platelets 264. Sodium 141, potassium 4.5, chlo ride 108, bicarb 25, BUN 32, creatinine 1.62, glucose 115, phosphorus 2.6, magnesium pending. Albumi n level 2.7. Urine culture growing E coli. It is sensitive to all the different antibiotics includi ng ceftriaxone that the patient is currently on. Echocardiogram shows low ejection fraction of 36%. Impression: 1.Atrial fibrillation. 2.Urinary tract infection. 3.Toxic encephalopathy. 4.Hypertension. 5.Anemia. 6.Volume depletion. Plan: We will go ahead and continue current anticoagulant therapy which is Eliquis 2.5 mg 2 times a day. I have increased dose of metoprolol from 25 mg to 50 mg 2 times a day considering the patient s till has atrial fibrillation with rapid ventricular rate, heart rate between 100 to 110 per minute. She is on digoxin, we will continue that. We will continue to follow renal function, which shows imp rovement compared to before. Physical Therapy to work with the patient. This morning, the patient w as still in ICU and I have asked nursing staff to make sure to try to get her out of ICU to regular r oom as soon as the room is available. The patient is having some confusion, disorientation, and this probably will improve once she gets out of ICU and definitely will improve much more when she is abl e to go back home and all those details were discussed with the patient's [id number] last night. I did communicate with Dr. Salguero regarding echocardiogram today and plan of treatment, which is r ight now rate control and anticoagulation therapy. Possible discharge to go home in next day to 2 da ys depending on her condition. NIDHI/MODL Voice ID: [id number] Report ID: [id number]
[2021-04-06] MEDS: ZOLPIDEM TARTRATE 5 MG TABLET PO SCH (21:33)
[2021-04-06] MEDS: APIXABAN 2.5 MG TABLET PO SCH (21:34)
[2021-04-07] MEDS: METOPROLOL TAR 50 MG TAB PO SCH ×2 (05:29→17:26)
[2021-04-07] MEDS: INSULIN -REGULAR HUMAN 50 UNIT/0.5 ML ML SQ SCH ×4 (07:30→20:01)
[2021-04-07] MEDS: FUROSEMIDE 40 MG TABLET PO SCH (09:24)
[2021-04-07] MEDS: CEFTRIAXONE 1,000 MG in NA CHLORIDE 0.9% 50 ML IVPB SCH (09:25)
[2021-04-07] MEDS: APIXABAN 2.5 MG TABLET PO SCH ×2 (09:26→20:15)
[2021-04-07] MEDS: DIGOXIN 0.25 MG TABLET PO SCH (09:26)
[2021-04-07] MEDS: FAMOTIDINE 20 MG/2 ML VIAL IV SCH (09:26)
[2021-04-07] MEDS: ONDANSETRON 4 MG/2 ML VIAL IV PRN ×2 (09:42→20:22)
[2021-04-07] MEDS: predniSONE 5 MG TAB PO SCH (11:15)
[2021-04-07] MEDS ORDERED: SODIUM CHLORIDE 0.9% 10ML INJ IV PRN (12:37)
[2021-04-07] MEDS ORDERED: PANTOPRAZOLE 40 MG INJ IVP ONE (13:00)
[2021-04-07] MEDS: ZOLPIDEM TARTRATE 5 MG TABLET PO SCH (20:15)
[2021-04-08] MEDS: ONDANSETRON 4 MG/2 ML VIAL IV PRN ×2 (04:45→23:06)
[2021-04-08] MEDS: METOPROLOL TAR 50 MG TAB PO SCH ×2 (05:56→17:32)
[2021-04-08 06:00] LABS: Absolute Lymphocytes (CBC) 1.1 K/uL (0.7-4.9); Hematocrit 35.8 % (36.0-45.0); Lymphocytes % 11.2 % (15.3-44.8); RBC Red Blood Cell Count 3.95 M/uL (3.86-4.86)
[2021-04-08 06:13] LABS: Potassium 4.1 mmol/L (3.5-5.1)
[2021-04-08] MEDS: INSULIN -REGULAR HUMAN 50 UNIT/0.5 ML ML SQ SCH ×4 (07:30→20:11)
--- NOTE | 2021-04-08 07:37 | PN ---
Date of Progress Note: 04/07/2021 Subjective: The patient was seen this morning for followup. She was lying in bed, not in distress, sleeping, easily arousable, recognized me immediately. Denies any abdominal pain, nausea, vomiting. She still has some intermittent periods of confusion reported by nursing staff. Objective: Vital Signs: Reviewed. HEENT: Examination unremarkable. Lungs: Clear to auscultation. No wheezing. No rales. Cardiovascular: Heart sounds normal. Abdomen: Soft. Bowel sounds normal. No guarding, rigidity, tenderness, or distention. Extremities: No leg edema. Laboratory Data: Yesterday's chest x-ray had shown chronic interstitial changes without any acute fi ndings. Fingerstick blood sugar readings reviewed. Impression: 1.Urinary tract infection. 2.Toxic encephalopathy. 3.Abdominal pain. 4.Nausea. 5.Heart failure, chronic, systolic. 6.Atrial fibrillation. Plan: We will go ahead and continue current antibiotics. The patient is on chronic [facility], and her maintenance dose is 5 mg daily. We will reduce dose from 15 mg to 10 mg daily in the next day or two. We will reduce dose down to her usual maintenance dose of 5 mg. Jameson stallings current antibiotic which is ceftriaxone. For her abdominal pain, no further workup is needed sreedhar simms in the hospital as the patient had a CAT scan of her abdomen at the time when she came into emerge ncy room, which was unremarkable, and we will discontinue her IV Pepcid that she is currently on and start her on IV Protonix and see if that helps to improve her pain or not. If this does not, one he uld consider outpatient GI consultation with EGD type of procedure. I will discontinue IV Lasix and start her on oral Lasix. Continue Eliquis, digoxin, and metoprolol. Physical Therapy to continue to work with her. I will see her tomorrow for followup. NIDHI/MODL Voice ID: [id number] Report ID: [id number]
[2021-04-08] MEDS: predniSONE 5 MG TAB PO SCH (08:55)
[2021-04-08] MEDS: DIGOXIN 0.25 MG TABLET PO SCH (08:56)
[2021-04-08] MEDS: APIXABAN 2.5 MG TABLET PO SCH ×2 (08:56→20:12)
[2021-04-08] MEDS: CEFTRIAXONE 1,000 MG in NA CHLORIDE 0.9% 50 ML IVPB SCH (08:56)
[2021-04-08] MEDS: FUROSEMIDE 40 MG TABLET PO SCH (08:56)
[2021-04-08] MEDS: PANTOPRAZOLE 40 MG INJ IVP SCH (09:00)
--- NOTE | 2021-04-08 14:25 | RAD REPORT ---
EXAM DESCRIPTION: US - Abdomen Exam Complete - 04/08/2021 2:09 pm CLINICAL HISTORY: Abdominal pain. abdominal pain COMPARISON: ABDOMINAL EXAM LIMITED dated 04/28/2015 FINDINGS: The liver is normal in size, shape and echotexture. No focal liver lesions or intrahepatic biliary dilatation is seen. No gallstones are seen in the gallbladder. Gallbladder wall is upper limit of normal measuring 4 mm. Common bile duct is normal in caliber measuring 4 mm. Both kidneys are normal in size, shape and echotexture. No hydronephrosis, focal lesion of concern or perinephric fluid. The spleen is poorly visualized due to bowel gas. The pancreas and aorta are obscured by bowel gas. The visualized aspects of the IVC are grossly normal. IMPRESSION: Slightly thickened gallbladder wall is noted which is of doubtful clinical significance. Otherwise, negative study.
[2021-04-08 15:55] LABS: Magnesium 1.4
--- NOTE | 2021-04-08 16:07 | PN ---
Date of Progress Note: 04/08/2021 Subjective: The patient was seen this morning for followup. She was sleeping, lying in bed, not in any distress. Did not eat breakfast this morning as reported by nursing staff. She denied any abdom inal pain, but was complaining of some nausea. Objective: Vital Signs: Reviewed. HEENT: Unremarkable. Lungs: Clear to auscultation. Heart: Sounds normal. Abdomen: Soft. Bowel sounds normal. No guarding, rigidity, tenderness, distention. Presence of co lostomy with surrounding skin appears normal. Extremities: No leg edema. Laboratory Data: White count 9.8, hemoglobin 11.5, platelets 330. Sodium 141, potassium 4.1, chlori de 104, bicarb 29, BUN 38, creatinine 1.70, glucose 91. Impression: 1.Urinary tract infection. 2.Abdominal pain. 3.Nausea. 4.Chronic kidney disease. 5.Hypertension. 6.Atrial fibrillation. 7.Chronic systolic heart failure. Plan: We will go ahead and continue current anticoagulation therapy. Continue metoprolol per order. We will continue current antibiotic for urinary tract infection. The patient had unremarkable CAT scan of the abdomen and pelvis when she came into emergency room, but she continues to have this abdo kath pain complaint and nausea. We will do abdominal ultrasound today. Yesterday, we started her o n Protonix and her Pepcid was discontinued. Once I see ultrasound result, then I will communicate with the casa ent's family members. NIDHI/MODL Voice ID: [id number] Report ID: [id number]
[2021-04-08] MEDS ORDERED: Magnesium Sulfate 2gm IVPB 2 G/50 ML BAG IV ONE (22:25)
[2021-04-08] MEDS: D5 0.9 NS 1,000 ML IV SCH (23:02)
[2021-04-09] MEDS: METOPROLOL TAR 50 MG TAB PO SCH ×2 (05:21→17:08)
[2021-04-09] MEDS: INSULIN -REGULAR HUMAN 50 UNIT/0.5 ML ML SQ SCH ×4 (07:30→21:00)
[2021-04-09 07:37] LABS: Potassium 3.7 mmol/L (3.5-5.1)
[2021-04-09 07:41] LABS: Digoxin Level 3.3 ng/mL (0.80-2.00)
[2021-04-09] MEDS ORDERED: POTASSIUM CL SA 10 MEQ TAB PO ONE (09:00)
[2021-04-09] MEDS: D5 0.9 NS 1,000 ML IV SCH (09:10)
[2021-04-09] MEDS: CEFTRIAXONE 1,000 MG in NA CHLORIDE 0.9% 50 ML IVPB SCH (09:10)
[2021-04-09] MEDS: FUROSEMIDE 40 MG TABLET PO SCH (09:11)
[2021-04-09] MEDS: APIXABAN 2.5 MG TABLET PO SCH ×2 (09:11→20:54)
[2021-04-09] MEDS: predniSONE 5 MG TAB PO SCH (09:11)
[2021-04-09] MEDS: PANTOPRAZOLE 40 MG INJ IVP SCH (09:11)
--- NOTE | 2021-04-09 13:13 | PN ---
Date of Progress Note: 04/06/2021 Ms. Zhou was seen on 04/04/2021 for rapid atrial fibrillation. She had come in with elevated proca lcitonin, possible sepsis, on antibiotics. Has a history of ulcerative colitis, mitral regurgitation , aortic stenosis, asthma, and hypertension. She is on metoprolol and digoxin. Heart rate is still low. Dr. Duarte and I discussed the case. We will increase the metoprolol dose. I am trying to avoid amiodarone if possible. Echocardiogram showed moderate aortic stenosis with an ejection fraction of 36%. She is presently on Eliquis, digoxin, Lasix, metoprolol, Rocephin, and prednisone. I think wh en she goes home we should replace the diltiazem with metoprolol as diltiazem is not a good medicine for the low ejection fraction. She should be on beta-darya. She should be on Benicar, which she t akes at home. She should be on Lasix and digoxin when she goes home. We will consider anticoagulati on at that point. I will discuss the case further with Dr. Duarte. WOLF/ROSEMARY Voice ID: [id number] Report ID: [id number]
[2021-04-09 14:18] LABS: Magnesium 2.2
--- NOTE | 2021-04-09 14:25 | RAD REPORT ---
EXAM DESCRIPTION: RAD - Abdomen W Erect - 04/09/2021 2:07 pm CLINICAL HISTORY: Abdominal pain FINDINGS: Free air is not seen beneath the bowel gas pattern. Air is present within nondilated small bowel in nonspecific fashion. Cement has been placed into and L3 vertebral fracture.
--- NOTE | 2021-04-09 22:18 | CON ---
Date of Consultation: 04/09/2021 Reason For Consultation: Nausea, abdominal pain. History Of Present Illness: The patient is an 89-year-old female with multiple medical problems, who was admitted approximately a week ago with atrial fibrillation with RVR and UTI. She was improving, however, over the last couple of days, she started having more nausea, was not eating and was compla ining of occasional abdominal pain. She had a CAT scan done which did not show any acute disease, ho wever, she does have a peristomal hernia and a ventral hernia. I was asked to evaluate to see if thi s could account for her symptoms. She also has a questionable thickening of the gallbladder wall. S he is awake, alert, and complaining of nausea. The nurses present and is about to get her some Zofra n. No sore throat, runny nose, cough, headaches, or dizziness. No chest pain and she has not vomite d but she feels like she will soon. No fever or chills. Review of Systems: Otherwise, unremarkable. Past Medical History: Significant for hypertension, asthma, lumbar fracture, atrial fibrillation, ul cerative colitis. Past Surgical History: Colectomy with colostomy present, back surgery. Allergies: SULFA. Social History: Patient does not smoke or drink alcohol. Family History: Significant for heart disease, hypertension, and stroke in the father side and mothe r with cancer of unknown type and non Hodgkin lymphoma. Physical Examination: Vital Signs: Her vitals currently are stable and she is afebrile. General: She is awake, alert, and oriented x3. Head And Neck: Cranial nerves 2 through 12 are grossly within normal limits. No neck masses. No JVD . Throat clear. Neck supple. Chest: Clear. Heart: S1 and S2. Abdomen: Soft, nondistended, nontender. Positive bowel sounds. Extremities: Adequately perfused. Nontender. Neurologic: Nonfocal. Laboratory Data: White count is 9.8 today, slight left shift. INR is 1.28. Chemistry reviewed, unr emarkable. I did an abdominal x-ray today to make sure patient did not have obstruction and the abdo kath x-ray showed free air not seen beneath the bowel gas pattern. Air is present within the nondil ated small bowel in a nonspecific fashion. Cement has been placed in the L3 vertebral fracture. She had an abdominal ultrasound done which shows slightly thickened gallbladder wall, it is noted which i s doubtful of clinical significance, otherwise, negative study. She had a CT of the abdomen and pelvi s and she was admitted that was reviewed as well and shows no significant or suspicious finding in th e right colostomy site and associated 8 cm diameter parastomal hernia containing bowel. There is sma ller supraumbilical midline ventral hernia also containing bowel. None of the herniated bowel shows wall thickening or edema. The herniated fat is not congested or edematous. Assessment: 89-year-old female with multiple medical problems with nausea, occasional abdominal pain . Recommendations: At this time, the etiology I do not think is the hernia, as there was no evidence o f any obstruction or any tenderness in the abdomen. Her issues may be with the stomach with a gastri tis or peptic ulcer disease or patient could have cholecystitis chronic in nature. Recommendation: If the patient starts to vomit and NG tube withheld, I do not think she needs at thi s point, I would recommend getting a HIDA scan to rule out any gallbladder disease and GI evaluation to see if an EGD would help elucidating the etiology of her symptomology. Primary care discussed with Dr. Duarte as well as the family member and I will follow this patient addy lock in the hospital. HERNAN/ROSEMARY Voice ID: [id number] Report ID: [id number]
--- NOTE | 2021-04-09 23:09 | PN ---
Date of Progress Note: 04/09/2021 Subjective: The patient was seen this morning for followup. She was lying in bed, not in distress. She is really not eating, drinking hardly anything, and her Oswald catheter was removed yesterday. This morning, when I saw her, she was lying in bed. She did open her eyes, recognized me, and talked to me. Not in any respiratory distress. Objective: HEENT: Unremarkable. Lungs: Clear to auscultation. Heart: Sounds normal. Abdomen: Soft. Bowel sounds normal. No guarding, rigidity, or distention. Presence of colostomy and patient does have mild tenderness scattered all over her abdomen. No rebound tenderness. Bowel sounds normoactive. No hepatosplenomegaly. No bruit. Extremities: No leg edema. Laboratory Data: Sodium 140, potassium 3.7, chloride 101, bicarb 32, BUN 39, creatinine 1.81, glucose 127. Digoxin level 3.30 and her abdominal ultrasound from yesterday shows borderline gallbladder wall thickening. Gallbladder wall is upper limit of normal measuring 4 mm. No evidence of gallstone. No evidence of any fluid around the gallbladder. Impression: 1. Urinary tract infection. 2. Abdominal pain. 3. Nausea. 4. Volume depletion. 5. Atrial fibrillation. 6. Congestive heart failure, chronic, systolic. 7. Digoxin toxicity. Plan: I have reviewed her CAT scan of abdomen, which was done at the time of admission, abdominal ultrasound, and all the results were reviewed with the patient's family member, that this patient is tiacdqlc-[id number]-lzp that I have been communicating with her on a regular basis. Today, I also requested consultation from Dr. Interiano to see if her abdominal pain could be anywhere related to her abdominal wall hernia that was noted on the CAT scan and after he evaluated, he informed me that the hernia is not really causing any of her current symptom and no need for any surgical intervention for that. I have ordered a HIDA scan, which may not be done over the weekend and we may have to wait until Sunday for that. We do not have any bridge inspector until , so we will not be able to get any GI consultation because that will be the only last thing is upper endoscopy as a part of workup for her abdominal pain and nausea, but we will see what the HIDA scan shows and then will make further decision. The patient was encouraged to eat and drink. Continue current empiric antibiotic, continue anticoagulation therapy. We will discontinue digoxin. Hold Lasix, and I will see her tomorrow for followup. NIDHI/MODL Voice ID: [id number] Report ID: [id number] MTDD
[2021-04-10] MEDS: D5 0.9 NS 1,000 ML IV SCH (05:18)
[2021-04-10] MEDS: METOPROLOL TAR 50 MG TAB PO SCH ×2 (05:19→18:05)
[2021-04-10 06:46] LABS: Potassium 3.7 mmol/L (3.5-5.1)
[2021-04-10] MEDS: INSULIN -REGULAR HUMAN 50 UNIT/0.5 ML ML SQ SCH ×4 (07:30→21:00)
[2021-04-10] MEDS ORDERED: CEFTRIAXONE 1000 MG/VIAL ONE (07:38)
[2021-04-10] MEDS ORDERED: NA CHLORIDE 0.9% 50 ML ONE (07:50)
[2021-04-10] MEDS: CEFTRIAXONE 1,000 MG in NA CHLORIDE 0.9% 50 ML IVPB SCH (08:04)
[2021-04-10] MEDS: APIXABAN 2.5 MG TABLET PO SCH ×2 (08:04→21:51)
[2021-04-10] MEDS: PANTOPRAZOLE 40 MG INJ IVP SCH (08:04)
[2021-04-10] MEDS: predniSONE 5 MG TAB PO SCH (08:04)
[2021-04-10] MEDS ORDERED: POTASSIUM CL SA 10 MEQ TAB PO ONE (09:00)
--- NOTE | 2021-04-10 10:46 | PN ---
Date of Progress Note: 04/10/2021 Subjective: The patient is awake, alert. Feels a little better than yesterday. She states that she had a little bit of her breakfast and was able to tolerate however and denies any abdominal pain. Objective: Vital Signs: Stable. She is afebrile. Abdomen: Soft. Assessment: Nausea, poor appetite, and the patient with multiple medical problems. Recommendations: We will await the results of the HIDA scan tomorrow. If that is negative, then we have to encourage her to eat as much as she can and we should try to get GI consultation. If we do n ot have GI available transitions rn care coordinator currently, so she may need to be evaluated as an outpatient. We will aw ait the results of the HIDA scan and make further recommendation. HERNAN/ROSEMARY Voice ID: [id number] Report ID: [id number]
--- NOTE | 2021-04-10 11:51 | PN ---
Date of Progress Note: 04/10/2021 Subjective: The patient was seen this morning for followup. She was sleeping, easily arousable, rec ognized me, talked to me. Denies any abdominal pain or nausea this morning, but she did not eat or d rink anything this morning and says she just does not feel hungry. No chest pain. No shortness of b reath. Objective: Vital Signs: Reviewed. HEENT: Unremarkable. Lungs: Clear to auscultation. Heart: Sounds normal. Abdomen: Soft. Bowel sounds normal. No guarding, rigidity. No distention. Bowel sounds normal. Presence of mild tenderness like what we saw yesterday. The patient still has tenderness, but does n ot have any complaints of pain until the examination was done. Extremity: No leg edema. Laboratory Data: Sodium 140, potassium 3.7, chloride 102, bicarb 30, BUN 39, creatinine 1.74, glucos e 128, calcium 10.3. Impression: 1.Urinary tract infection. 2.Atrial fibrillation. 3.Chronic systolic congestive heart failure. 4.Volume depletion. 5.Failure to thrive. 6.Abdominal pain. 7.Nausea. Plan: We will go ahead and continue current antibiotic. I have ordered a HIDA scan to be done to lo ok at her gallbladder. Meanwhile, we will continue current antibiotic for urinary tract infection. Continue maintenance IV fluid and I did encourage her to try to drink Ensure and try to eat and drink as much as she can and she told me she will try. We will repeat blood work tomorrow. I will see he r tomorrow morning for followup. She does not have any decubitus on her heels, but we will go ahead and order heel protectors and offloading of heels to prevent any decubitu s ulcers. NIDHI/MODL Voice ID: [id number] Report ID: [id number]
[2021-04-10] MEDS: ENSURE HIGH PROTEIN 237 ML CAN PO SCH ×2 (12:21→21:52)
[2021-04-11] MEDS: D5 0.9 NS 1,000 ML IV SCH (03:23)
[2021-04-11] MEDS: METOPROLOL TAR 50 MG TAB PO SCH ×2 (05:28→17:54)
[2021-04-11] MEDS: PANTOPRAZOLE 40MG TABLET PO SCH (05:33)
[2021-04-11 05:56] LABS: Absolute Lymphocytes (CBC) 1.3 K/uL (0.7-4.9); Hematocrit 41.8 % (36.0-45.0); Lymphocytes % 12.9 % (15.3-44.8); MPV 8.8 fL (7.6-11.3)
[2021-04-11 06:23] LABS: Albumin 2.7 g/dL (3.4-5.0); Bilirubin Total 0.4 mg/dL (0.2-1.0); Potassium 3.6 mmol/L (3.5-5.1); Protein, Total 6.3 g/dL (6.4-8.2)
[2021-04-11] MEDS ORDERED: POTASSIUM CL SA 10 MEQ TAB PO ONE ×2 (06:34→09:00)
[2021-04-11] MEDS: INSULIN -REGULAR HUMAN 50 UNIT/0.5 ML ML SQ SCH ×4 (07:30→20:30)
[2021-04-11] MEDS ORDERED: CEFTRIAXONE 1000 MG/VIAL ONE (07:53)
[2021-04-11] MEDS ORDERED: NA CHLORIDE 0.9% 50 ML ONE (08:00)
[2021-04-11] MEDS: ENSURE HIGH PROTEIN 237 ML CAN PO SCH ×3 (08:28→20:25)
[2021-04-11] MEDS: predniSONE 5 MG TAB PO SCH (08:30)
[2021-04-11] MEDS: APIXABAN 2.5 MG TABLET PO SCH ×2 (08:31→20:24)
[2021-04-11] MEDS: TRIAMCINOLONE ACET 0.1% CREAM 80 GM TOP SCH ×2 (08:31→20:33)
[2021-04-11] MEDS: CEFTRIAXONE 1,000 MG in NA CHLORIDE 0.9% 50 ML IVPB SCH (08:31)
[2021-04-11] MEDS: FUROSEMIDE 40 MG TABLET PO SCH (09:00)
--- NOTE | 2021-04-11 10:49 | RAD REPORT ---
EXAM DESCRIPTION: NM - Hepatobiliary System W/ Ph - 04/11/2021 10:26 am CLINICAL HISTORY: abd pain Right upper quadrant abdominal pain COMPARISON: No comparisons TECHNIQUE: The patient was administered 5.6 mCi Tc99m Choletec. Imaging of the right upper quadrant was performed initially for up to 60 minutes. Gallbladder ejection fraction determination was then performed utilizing synthetic 1.8 mgm CCK over a slow 30 minute infusion. FINDINGS: Normal hepatic uptake and excretion with appropriate clearance of background blood pool ac tivity. Normal visualization of biliary and small bowel activity. Gallbladder visualizes within normal time limits. The calculated ejection fraction is 13% (normal gre ater than 35%). Subjective pain reported by the patient: Pre-procedure - none During or subsequent to synthetic CCK infusion - mild nausea. 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 No delay in visualization of the gallb ladder, biliary tree, or duodenum. Ejection fraction is 13% (normal greater than 35%). Subjective patient pain assessment as detailed above.
--- NOTE | 2021-04-11 11:16 | PN ---
Date of Progress Note: 04/11/2021 Subjective: The patient is awake, alert, feels much better. She is hungry. Vitals stable, afebrile . HIDA scan is pending. Laboratory Data: Reviewed. White count is normal. There is still a slight left shift. Electrolyte s are reviewed. Assessment: Abdominal pain, improving. Recommendations: We will go and await HIDA scan results. The patient does not have a surgical abdom en. If the HIDA scan is negative, she can tolerate diet and she will be discharged home and follow u p with GI Service as an outpatient. I will discuss plan of care with Dr. Duarte. HERNAN/ROSEMARY Voice ID: [id number] Report ID: [id number]
[2021-04-11 14:26] LABS: Magnesium 1.7
[2021-04-12] MEDS: D5 0.9 NS 1,000 ML IV SCH (03:47)
[2021-04-12 05:38] LABS: Potassium 3.6 mmol/L (3.5-5.1)
[2021-04-12] MEDS: METOPROLOL TAR 50 MG TAB PO SCH ×2 (05:46→17:17)
[2021-04-12] MEDS: PANTOPRAZOLE 40MG TABLET PO SCH (05:47)
--- NOTE | 2021-04-12 06:13 | PN ---
Date of Progress Note: 04/11/2021 Subjective: The patient was seen this morning for followup. No new complaints or problems reported by her except she was complaining of some itching on her back. Overall, she looks better today than yesterday. Objective: Vital Signs: Reviewed. HEENT: Unremarkable. Lungs: Clear to auscultation. Heart: Sounds normal. Abdomen: Soft. Bowel sounds normal. No guarding, rigidity, tenderness, or distention. Extremities: No leg edema. Laboratory Data: White count 9.9, hemoglobin 13.2, platelets 292. Sodium 143, potassium 3.6, chlori de 106, bicarb 32, BUN 33, creatinine 1.41, glucose 100. Liver function tests unremarkable. Impression: 1.Urinary tract infection. 2.Atrial fibrillation. 3.Chronic systolic congestive heart failure. 4.Anemia. 5.Hypertension. 6.Generalized weakness. Plan: We will go ahead and continue current medications, continue current antibiotic. We will plan to have a HIDA scan tomorrow as it was not done today and the patient looks actually better today maye n last few days, and she was encouraged to eat and drink and I will see her tomorrow for followup. We will continue current metoprolol and anticoagulation therapy per order . NIDHI/MODL Voice ID: [id number] Report ID: [id number]
[2021-04-12] MEDS: INSULIN -REGULAR HUMAN 50 UNIT/0.5 ML ML SQ SCH ×4 (07:30→21:00)
[2021-04-12] MEDS: ENSURE HIGH PROTEIN 237 ML CAN PO SCH ×3 (09:00→21:42)
[2021-04-12] MEDS ORDERED: POTASSIUM CL SA 10 MEQ TAB PO ONE (09:00)
[2021-04-12] MEDS ORDERED: HALOPERIDOL LACT 5 MG/ML INJ IV PRN (09:11)
[2021-04-12] MEDS: APIXABAN 2.5 MG TABLET PO SCH ×2 (10:05→21:39)
[2021-04-12] MEDS: predniSONE 5 MG TAB PO SCH (10:05)
[2021-04-12] MEDS: CEFTRIAXONE 1,000 MG in NA CHLORIDE 0.9% 50 ML IVPB SCH (10:05)
[2021-04-12] MEDS: SACUBITRIL/VALSARTAN 24/26 MG TAB PO SCH ×2 (10:07→21:39)
[2021-04-12] MEDS: FUROSEMIDE 40 MG TABLET PO SCH (10:07)
[2021-04-12] MEDS ORDERED: BELLADONNA/PB 5 ML/ORAL SYRINGE PO PRN (10:32)
[2021-04-12] MEDS ORDERED: MAGNES/ALUMIN/SIMET 30ML UCUP PO PRN (11:22)
[2021-04-12] MEDS ORDERED: LIDOCAINE VISCOUS 2% SOLN 15 ML UDC PO PRN (11:23)
[2021-04-12] MEDS ORDERED: DIPHENHYDRAMINE 12.5MG/5ML LIQ PO PRN (11:24)
[2021-04-12] MEDS: TRIAMCINOLONE ACET 0.1% CREAM 80 GM TOP SCH ×2 (11:34→21:39)
[2021-04-12 12:23] LABS: Magnesium 1.6
--- NOTE | 2021-04-12 14:48 | PN ---
Date of Progress Note: 04/12/2021 Subjective: The patient is awake, alert. Tolerating her diet. She did have a HIDA scan done, which showed an ejection fraction of 13% with a CCK injection with some mild nausea. The patient states t hat she feels much better. No abdominal pain and tolerating her diet. Objective: Vital Signs: Stable. She is afebrile. Abdomen: Benign. Assessment: Likely biliary dyskinesia with possible chronic cholecystitis and the patient with multi ple medical problems. Recommendations: I discussed the case with Dr. Duarte. At this point, we will try conservative measur es to treat the patient with GI cocktail p.r.n. as well as avoiding fatty foods, fried food, or spicy food. If the patient does well, she can be discharged and should she have problems, then we will co nsider cholecystectomy at that time. Plan of care discussed with the patient as well as Dr. Duarte. HERNAN/ROSEMARY Voice ID: [id number] Report ID: [id number]
[2021-04-13] MEDS: METOPROLOL TAR 50 MG TAB PO SCH ×2 (06:01→17:06)
[2021-04-13] MEDS: PANTOPRAZOLE 40MG TABLET PO SCH (06:01)
--- NOTE | 2021-04-13 06:15 | PN ---
Date of Progress Note: 04/12/2021 Subjective: The patient was seen this morning for followup. She was lying in bed, awake, alert, ans wering questions appropriately. Denies any abdominal pain, nausea, vomiting. Objective: Vital Signs: Reviewed. HEENT: Unremarkable. Lungs: Clear to auscultation. Heart: Sounds normal. Abdomen: Soft. Bowel sounds normal. No guarding, rigidity, tenderness, or distention. Extremities: No leg edema. Laboratory Data: Sodium 144, potassium 3.6, chloride 108, bicarb 30, BUN 24, creatinine 1.16, glucos e 104. HIDA scan results reviewed, came back abnormal with ejection fraction 13%. Impression: 1.Urinary tract infection. 2.Chronic atrial fibrillation. 3.Chronic systolic congestive heart failure. 4.Hypertension. 5.Senile dementia. Plan: The patient will continue to receive antibiotic which is ceftriaxone today, and as of tomorrow , we will discontinue this antibiotic as the patient has received adequate number of days of this ant ibiotics for urinary tract infection. The patient's HIDA scan is abnormal that proves that she has d ysfunctional gallbladder, and eventually she will need to have laparoscopic cholecystectomy done, but our recommendation is that, that should be done on an elective outpatient basis when her condition i s more stable, especially her cardiac condition that we will need to follow up on with time. We will continue current anticoagulation medication. Continue metoprolol. We will discontinue IV fluid. P hysical Therapy to work with the patient. During the course of day today, after I saw her, she got v arley agitated, restless, planning to leave hospital and was not cooperative with the nursing staff. H aldol was ordered for p.r.n. use and that actually did help to calm her down. Later today I talked t o patient's daughter in law. Details were discussed. She is aware of the HIDA scan result as Dr. Anna burrows had informed her, and the way patient's behavior is, it is obvious that she has some underlying s enile dementia. Obviously, it is expected to improve once she gets out of the hospital, but over per iod of time this dementia will become more obvious with signs, symptoms, and we will have to handle t his on an outpatient basis as the time goes on. She will benefit from neurological evaluation once h er condition is back to baseline and all these details were discussed with family. I also suggested to family that now it is time for us to go ahead and plan for discharge because she does not require any more IV antibiotics and no more further testing that requires her to be in the hospital and we di scussed about option of either going to custodial facility for short-term stay and then go home or directly go home with home health, home physical therapy, and obviously in that case she will nee d extra assistance from family member, so ttalbevy-gf-xzl will communicate with the rest of the famil andreas fall and I will communicate with her again tomorrow morning. She was made aware of the fact maye t the patient is now ready for discharge. NIDHI/MODL Voice ID: [id number] Report ID: [id number]
[2021-04-13 06:20] LABS: Potassium 3.6 mmol/L (3.5-5.1)
[2021-04-13] MEDS: INSULIN -REGULAR HUMAN 50 UNIT/0.5 ML ML SQ SCH ×3 (07:30→16:30)
[2021-04-13] MEDS: TRIAMCINOLONE ACET 0.1% CREAM 80 GM TOP SCH (09:00)
[2021-04-13] MEDS: ENSURE HIGH PROTEIN 237 ML CAN PO SCH ×2 (09:00→14:00)
[2021-04-13] MEDS ORDERED: POTASSIUM CL SA 10 MEQ TAB PO ONE (09:00)
[2021-04-13] MEDS: predniSONE 5 MG TAB PO SCH (09:05)
[2021-04-13] MEDS: SACUBITRIL/VALSARTAN 24/26 MG TAB PO SCH ×2 (09:05→20:06)
[2021-04-13] MEDS: APIXABAN 2.5 MG TABLET PO SCH ×2 (09:05→20:07)
[2021-04-13] MEDS: FUROSEMIDE 40 MG TABLET PO SCH (09:07)
--- NOTE | 2021-04-13 09:30 | PN ---
Date of Progress Note: 04/13/2021 Subjective: The patient is awake, alert, tolerating her diet. No complaint. No nausea or vomiting. No abdominal pain. Objective: Vital Signs: Stable, afebrile. Abdomen: Benign. Assessment: Biliary dyskinesia and chronic cholecystitis. Recommendations: Discussed the case with Dr. Duarte. We will treat the UTI and then she will be disch arged home with GI cocktail and should she continued to have symptoms, then we will do an elective ch olecystectomy on the patient. Right now, the patient clinically looks okay for discharge. She can f ollow up with me as an outpatient. HERNAN/ROSEMARY Voice ID: [id number] Report ID: [id number]
[2021-04-13 20:15] VITALS: BP 147/93; TEMP 97
[2021-04-13 20:53] VITALS: O2SAT 93
--- NOTE | 2021-04-14 06:52 | DS ---
Date of Discharge: 04/13/2021 Disposition: Discharged to go to jail. Physical Examination: HEENT: Unremarkable. Lungs: Clear to auscultation. Heart: Sounds normal. Abdomen: Soft. Bowel sounds normal. No guarding, rigidity, tenderness, distention. Extremities: No leg edema. Discharge Medications And Instructions: 1.Eliquis 2.5 mg 2 times a day, furosemide 40 mg p.o. daily, metoprolol 50 mg 2 times a day, famotid ine 40 mg at bedtime, prednisone 5 mg daily, and Entresto 24/26 mg p.o. 2 times a day. 2.Fall precautions. 3.Consult Physical Therapy and Occupational Therapy. Laboratory Data: Upon admission; white count 11.5, hemoglobin 12.2 platelets 302. Last CBC from 09/2021; white count 9.9, hemoglobin 13.2, platelets 292. Lowest hemoglobin was 10.9 on 04/06/2021. Last chemistry today; sodium 142, potassium 3.6, chloride 104, bicarb 31, BUN 23, creatinine 1.27, g lucose 112. Initial chemistry upon admission; sodium 137, potassium 4.7, chloride 106, bicarb 23, BU N 31, creatinine 1.69, glucose 148. Echocardiogram done during this hospitalization shows ejection f raction 36% and moderate aortic stenosis. Hospital Course: This is an 89-year-old pleasant female patient, admitted to the hospital with urina ry tract infection. Please see dictated H and P for more information. Sepsis was ruled out. She wa s started on IV antibiotics, which was ceftriaxone and this was a culture specific appropriate antibi otic when we received the culture results back. Overall, her condition from urinary tract infection improved with antibiotic, but she had multiple other medical problems. One problem she had was atria l fibrillation and Cardiology consultation was obtained. She was treated with medical management, wh ich was rate control and anticoagulation therapy and she responded well to that. Echocardiogram had shown low ejection fraction. She had volume depletion at some point, which was corrected. She has s hown signs of dementia during this hospitalization with periods of confusion and hallucinations from time to time. Physical Therapy and Occupational Therapy were consulted. She also had very poor appe tite and was complaining of abdominal pain and nausea from time to time. When [facility], she had a CAT scan of abdomen, which did not reveal any acute intraabdominal finding, but there was a ventral hernia and Dr. Interiano was consulted from General Surgery. We also did abdominal ultrasound, which showed that the gallbladder wall was upper limit of normal. No evidence of gallsto ne or fluid around the gallbladder. Dr. Interiano did not recommend any surgical intervention. HIDA sca n was done this week and that came back abnormal with gallbladder ejection fraction 13%. This is ind icating that the patient has dysfunctional gallbladder and eventually she will benefit from laparosco pic cholecystectomy, but that should be done on an elective outpatient basis when her condition is mu ch stable compared to where we are right now. All these details were discussed with the patient's fa risa and the patient. She has significant generalized weakness and debility and family will not be a ble to provide care at home to start with, so it was recommended for the patient to go to skilled [facility] facility and the patient and family agreed and Social Service was able to make arrangements and today, the patient was discharged to go to such facility in stable condition. Final Diagnoses: 1.Atrial fibrillation, paroxysmal. 2.Chronic systolic heart failure. 3.Urinary tract infection. 4.Volume depletion. 5.Chronic kidney disease, stage 3B. 6.Anemia, unspecified. 7.Biliary dyskinesia. 8.Aortic stenosis. 9.Hypertension. 10.Hyperlipidemia. 11.Diverticulosis. 12.Ventral abdominal wall hernia. 13.Osteoarthritis, multiple sites. 14.Insomnia. NIDHI/MODL Voice ID: [id number] Report ID: [id number]
== END 2021-04-13 21:00 | DRG 689 ==
LOC: ER 16:49 → 3RD-ICU 21:41 → 2ND 04-06 12:49
PROVIDERS: ADMIT Internal Medicine; ATTEND Internal Medicine
PROC: 05HY33Z Insertion of Infusion Device into Upper Vein, Percutaneous Approach (ICD-10-PCS; principal; 2021-04-03)
DX: N30.01 Acute cystitis with hematuria (principal); G92.9 Unspecified toxic encephalopathy; K51.90 Ulcerative colitis, unspecified, without complications; I24.8 Other forms of acute ischemic heart disease; I50.22 Chronic systolic (congestive) heart failure; I13.0 Hypertensive heart and chronic kidney disease with heart failure and stage 1 through stage 4 chronic kidney disease, or unspecified chronic kidney disease; N18.32 Chronic kidney disease, stage 3b; I48.0 Paroxysmal atrial fibrillation; E78.5 Hyperlipidemia, unspecified; E86.9 Volume depletion, unspecified; K43.9 Ventral hernia without obstruction or gangrene; D64.9 Anemia, unspecified; K81.1 Chronic cholecystitis; K57.90 Diverticulosis of intestine, part unspecified, without perforation or abscess without bleeding; K82.8 Other specified diseases of gallbladder; M19.90 Unspecified osteoarthritis, unspecified site; G47.00 Insomnia, unspecified; F03.90 Unspecified dementia, unspecified severity, without behavioral disturbance, psychotic disturbance, mood disturbance, and anxiety; I35.0 Nonrheumatic aortic (valve) stenosis; J45.909 Unspecified asthma, uncomplicated; T46.0X5A Adverse effect of cardiac-stimulant glycosides and drugs of similar action, initial encounter; R53.81 Other malaise; R62.7 Adult failure to thrive; Z68.34 Body mass index [BMI] 34.0-34.9, adult; Z79.52 Long term (current) use of systemic steroids; Z79.899 Other long term (current) drug therapy; Z79.01 Long term (current) use of anticoagulants; Z88.1 Allergy status to other antibiotic agents; Z20.822 Contact with and (suspected) exposure to COVID-19
CPT/HCPCS: 36415; 51702; 70450; 71045; 71250; 74019; 74176; 76700; 78227; 80048; 80053; 80061; 80069; 80076; 80162; 81003; 82947; 83605; 83690; 83735; 83880; 84100; 84145; 84439; 84443; 84484; 85025; 85610; 86850; 86900; 86901; 87040; 87077; 87086; 87088; 87186; 93005; 93306; 94760; 97116; 97161; 97530; 99285; A9537; C9113; J1160; J1630; J1940; J2405; J2543; J2805; J3475; J7030; J7042; J7512; Q0163; U0003